=== PATIENT | female | born 1935 | race Caucasian/White ===

== ENCOUNTER 2017-03-01 17:00 | Inpatient (IN) | payer MEDICARE ==
[~2017-03-01] VITALS: Ht 158.8 cm; Wt 67.3 kg
[~2017-03-01 17:00] MED LIST: ACET1TAB PO; ALBU8.5H4 IH; CHOL200035 PO; CITA10TA14 PO; DIGO250T PO; FURO40TA PO; HYDR1TAB69 PO; LISI2.5T66 PO; MVI PO; PAPAYA ENZYME; PRI20 PO; PRO10 PO; SYN75 PO; VITAMIN B-12 PO; WARF4TAB2 PO; [UNRECOGNIZED DRUG - CODE] PO
--- NOTE | 2017-03-01 17:11 | ED.REPORT ---
HPI-Hip/Pelvis Prob/Inj Date of Service Mar 01, 2017 ED Provider: Dandre Ward DO The pt is a 81 y/o female with hx of A-fib, HTN, osteoarthritis, and R hip fx who presents to the ED via EMS complaining of left hip pain after a GLF prior to arrival. She c/o associated left shoulder pain. She denies abdominal pain, chest pain, headache, and head injury. The pt caught herself falling and fell on her left hip, resulting in her pain. The pain radiates down her entire left leg, with pain being most severe at the left hip. The pt is currently on warfarin. Nursing Notes Stated Complaint: LEFT HIP PAIN Chief Complaint: Left hip pain Nursing Notes Reviewed: Yes Allergies: Coded Allergies: Hydrocodone (Verified Allergy, Severe, 04/14/09) Metronidazole (Verified Allergy, Severe, whole body rash, 04/14/09) Penicillins (Verified Allergy, Mild, ITCHING BODY RASH/HIVES, 01/09/10) Beclomethasone (Verified Allergy, Unknown, 04/14/09) Nabumetone (Verified Allergy, Unknown, 04/14/09) Codeine (Verified Adverse Reaction, Mild, Nausea, 04/14/09) Uncoded Allergies: Iodinated contrast (Allergy, Severe, whole body rash, 12/30/08) Codeine (Adverse Reaction, Mild, Nausea, 03/05/05) General Time Seen by Provider: 17:20 Chief Complaint Hip injury left Hx Obtained From: Patient, EMS Arrived By: Ambulance Onset Occurred: Just prior to arrival Symptom Duration: Since onset Progression Since Onset: Constant Caused by: Accidental Location: Hip, L lateral aspect Quality: Painful Radiation: Radiation present Severity: Current: Severe Severity: Maximum: Severe Recent Healthcare: No recent doctor visit, No recent hospitalization Similar Sx Previous: No Past Medical History Past Medical History Osteoarthritis thrombophlebitis Asthma Right hip fx with hardware Reports: GERD, Hypertension Reports: Atrial fibrillation, Thyroid disease, Urinary tract infection Past Surgical History left knee joint replacement tumor ovary Reports: Cholecystectomy, Hysterectomy Reports: Gastric bypass Smoking History Former Smoker Social History Drug Use: Denies drug use Ambulatory Status Independent Review of Systems + left hip pain Denies head injury Musculoskeletal: Reports: Extremity pain (left shoulder, left leg), Joint pain (left knee) Neurologic: Denies: Headache Complete sys rev & neg: except as marked. Cardiovascular: Denies: Chest pain GI: Denies: Abdominal pain Physical Exam Initial Vital Signs Vital Signs (First) Date Time Temp Pulse Resp B/P Pulse Ox O2 Delivery O2 Flow Rate FiO2 03/01/17 17:31 37.0 88 18 138/69 100 Room Air Initial VS: Reviewed Head / Eyes: Atraumatic, Normocephalic Neck: Supple, Full range of motion Respiratory: Breath sounds normal, Clear to auscultation, No respiratory distress Cardiovascular: Regular rate & rhythm, Heart sounds normal, Intact distal pulses Abdomen / GI: Soft, Non-tender Upper Extremities: Vascular intact, Neuro intact Skin: Warm, Dry, No cyanosis Neurologic: Alert, Oriented, Nonfocal Psychiatric: Mood/affect normal, Behavior normal Lower Extremity / Pelvis / MS: Neurologic intact, Vascular intact Left hip is shortened and externally rotated. Tenderness and proximal left femur, knee, and tib-fib. General/Constitutional: Awake, Alert Upper Extremity / MS: Full range of motion, Neurologic intact, Vascular intact Interpretation & Diagnostics Lab Results Interpretation Result Diagram: 03/01/17 1736 03/01/17 1736 Test 03/01/17 17:29 03/01/17 17:36 Hold Urine Received (Received) White Blood Count 5.0th/mm3 (3.8-10.1) Red Blood Count 3.94mil/mm3 (3.90-5.20) Hemoglobin 12.6g/dL (12.0-15.6) Hematocrit 37.7% (35.0-46.0) Mean Corpuscular Volume 95.7fL (81-100) Mean Corpuscular Hemoglobin 32.0pg (27.0-35.0) Mean Corpuscular Hemoglobin Concent 33.4% (32.0-37.0) Red Cell Distribution Width 13.9% (12.3-15.4) Platelet Count 141bil/L (150-400) Neutrophils (%) (Auto) 71.1% (40-74) Lymphocytes (%) (Auto) 19.3% (14-46) Monocytes (%) (Auto) 7.4% (4-12) Eosinophils (%) (Auto) 1.8% (0-5) Basophils (%) (Auto) 0.2% (0-3) Prothrombin Time 22.2sec (8.1-12.5) Prothromb Time International Ratio 2.04ratio Sodium Level 138mEq/L (134-144) Potassium Level 3.4mEq/L (3.5-5.2) Chloride Level 96mEq/L (97-108) Carbon Dioxide Level 21mmol/L (18-29) Blood Urea Nitrogen 24mg/dL (8-27) Creatinine 0.86mg/dL (0.57-1.00) Estimat Glomerular Filtration Rate 91mL/min (>59) Glucose Level 121mg/dL (60-99) Calcium Level 9.6mg/dL (8.5-10.1) Total Bilirubin 0.7mg/dL (0.0-1.2) Aspartate Amino Transf (AST/SGOT) 24U/L (0-50) Alanine Aminotransferase (ALT/SGPT) 16U/L (0-32) Alkaline Phosphatase 95U/L (25-165) Total Protein 6.8g/dL (6.4-8.4) Albumin 3.9g/dL (3.4-5.0) Hold Gupta Top Tube Received (Received) X-Ray Chest Interpretation Chest Xray Interpretation: IMPRESSION: No acute cardiopulmonary disease process. Dictated by: Deysi Dailey MD, PhD on 03/01/2017 at 18:38 View: Portable, 1 view Interpretation / Wet Read by: Interpret - Radiologist X-Ray Interpretation Xray Interpretation: IMPRESSION: No distal left femur fracture. Dictated by: Deysi Dailey MD, PhD on 03/01/2017 at 18:39 Study Performed: TWO VIEWS X-Ray Ordered: Femur left Interpretation / Wet Read by: Interpret - Radiologist Xray Interpretation: IMPRESSION: Intertrochanteric left femur fracture. Dictated by: Deysi Dailey MD, PhD on 03/01/2017 at 18:36 Study Performed: COMPLETE, MINIMUM TWO VIEWS X-Ray Ordered: Hip left Interpretation / Wet Read by: Interpret - Radiologist Xray Interpretation: IMPRESSION: No fracture. No acute osseous lesion. If there are persistent symptoms or clinical suspicion for pathology, then repeat radiographs or advanced imaging (CT, MRI or bone scan) should be considered for further evaluation. Dictated by: Deysi Dailey MD, PhD on 03/01/2017 at 18:40 Study Performed: Two Views X-Ray Ordered: Tibia fibula left Interpretation / Wet Read by: Interpret - Radiologist Re-Eval/Medical Decision Med Decision/Clinical Course Left intertrochanteric femur fracture without head injury. We'll plan to admit for surgical fixation. Source of Hx: Old records Re-Evaluation/Progress : Time of Eval: 18:53 Re-Evaluation/Progress Note: Pt rechecked. Informed pt of diagnosis and plan for admission. The pt understands and agrees with plan. All questions addressed at this time. Consultation #1: Referral / Consult Name: Zhen Long MD Call Returned at: 18:48 Police Liaison Officer: Will see patient Note: NPO chel INIGUEZ Consultation #2: Referral / Consult Name: Colton Dial MD Call Returned at: 19:15 Police Liaison Officer: Accepts admit Counseled Regarding: Diagnosis, Lab results, Need for admission Discharge & Departure Impression: Primary Impression: Intertrochanteric fracture Encounter type: initial encounter Fracture type: closed Laterality: left Additional Impression: Left fibular fracture Encounter type: initial encounter Fibula location: proximal Fracture type: closed Fracture morphology: unspecified fracture morphology Qualified Code : S82.832A - Other fracture of upper and lower end of left fibula, initial encounter for closed fracture Disposition: ADMITTED TO HOSPITAL Discharge Condition All VS Reviewed: Yes Condition: Stable Referrals: Can Rollins MD (PCP) Scribe Attestation Portions of this note were transcribed by Tony Donato and Manasa Post. I , Dr. Ward personally performed the history, physical exam and medical decision-making; I reviewed and confirmed the accuracy of the information in the transcribed note. Signed by: Tony Donato and Jakob Mathis, 03/01/17. copies to: Can Rollins MDDandre Kumari Mar 01, 2017 17:11 Tony Donato Mar 01, 2017 17:19 Manasa Clarke Mar 01, 2017 18:20 : S82.832A - Other fracture of upper and lower end of left fibula, initial encounter for closed fracture Disposition: ADMITTED TO HOSPITAL Discharge Condition All VS Reviewed: Yes Condition: Stable Referrals: Can Rollins MD (PCP) Scribe Attestation Portions of this note were transcribed by Tony Donato and Manasa Post. I , Dr. Ward personally performed the history, physical exam and medical decision-making; I reviewed and confirmed the accuracy of the information in the transcribed note. Signed by: Tony Donato and Manasa Post, Jakob, 03/01/17. copies to: Can Rollins MD, Timothy S DO Mar 01, 2017 17:11 Tony Donato Mar 01, 2017 17:19 Manasa Clarke Mar 01, 2017 18:20
[2017-03-01 17:31] VITALS: BP 138/69; PULSE 88; RESP 18; O2SAT 100
[2017-03-01 17:50] LABS: BASOPHILS % (AUTO) 0.2 % (0-3); EOSINOPHILS % (AUTO) 1.8 % (0-5); MONOCYTES % (AUTO) 7.4 % (4-12); Mean Corpuscular Volume 95.7 fL (81-100); NEUTROPHILS % (AUTO) 71.1 % (40-74); Platelet Count 141 bil/L (150-400)
[2017-03-01 18:07] LABS: INR 2.04 ratio
--- NOTE | 2017-03-01 18:39 | DRSVH ---
PROCEDURE: X-RAY LEFT HIP COMPLETE, MINIMUM TWO VIEWS ([id number]) INDICATIONS: fall, hip pain TECHNIQUE: AP pelvis with lateral view(s) of the left hip(s). COMPARISON: None. FINDINGS: Bones: Mildly displaced intertrochanteric left femur fracture noted. Postoperative changes compatib le with ORIF of proximal right femur fracture noted. Displaced lesser trochanter fracture noted. Soft tissues: The visualized bowel gas pattern is normal. No suspicious soft tissue calcifications. IMPRESSION: Intertrochanteric left femur fracture. Dictated by: Deysi Dailey MD, PhD on 03/01/2017 at 18:36 Approved by: Deysi Dailey MD, PhD on 03/01/2017 at 18:38
--- NOTE | 2017-03-01 18:40 | DRSVH ---
PROCEDURE: X-RAY CHEST ONE VIEW, PORTABLE ([id number]) INDICATIONS: fall, hip pain TECHNIQUE: One view of the chest was acquired. COMPARISON: [facility], , CHEST 1VW, 01/09/2010, 9:09. FINDINGS: Surgical changes and devices: Status post CABG procedure and cardiac valve replacement. Lungs and pleura: No pleural effusions or pneumothorax. Lungs are clear. Mediastinum: Mediastinal contours appear normal. Heart size is normal. Bones and chest wall: No suspicious bony lesions. Overlying soft tissues appear unremarkable. IMPRESSION: No acute cardiopulmonary disease process. Dictated by: Deysi Dailey MD, PhD on 03/01/2017 at 18:38 Approved by: Deysi Dailey MD, PhD on 03/01/2017 at 18:39
--- NOTE | 2017-03-01 18:41 | DRSVH ---
PROCEDURE: X-RAY LEFT FEMUR, TWO VIEWS ([id number]) INDICATIONS: fall, hip pain TECHNIQUE: 2 views of the femur were acquired. COMPARISON: None. FINDINGS: Bones: No distal left femur fracture noted. Patient status post left knee arthroplasty. Soft tissues: Atherosclerotic calcifications noted. IMPRESSION: No distal left femur fracture. Dictated by: Deysi Dailey MD, PhD on 03/01/2017 at 18:39 Approved by: Deysi Dailey MD, PhD on 03/01/2017 at 18:40
--- NOTE | 2017-03-01 18:43 | DRSVH ---
PROCEDURE: X-RAY LEFT TIBIA/FIBULA, TWO VIEWS ([id number]) INDICATIONS: fall, hip pain TECHNIQUE: 2 views of the tibia and fibula were acquired. COMPARISON: None. FINDINGS: Bones: No fractures or dislocations. No suspicious bony lesions. Status post left knee arthroplasty . Ankle osteoarthritic degenerative changes noted. Calcaneal bone spur is noted. Soft tissues: Atherosclerotic calcifications noted. IMPRESSION: No fracture. No acute osseous lesion. If there are persistent symptoms or clinical suspi cion for pathology, then repeat radiographs or advanced imaging (CT, MRI or bone scan) should be cons idered for further evaluation. Dictated by: Deysi Dailey MD, PhD on 03/01/2017 at 18:40 Approved by: Deysi Dailey MD, PhD on 03/01/2017 at 18:41
[2017-03-01] MEDS ORDERED: FURO40TA4 PO (19:23)
[2017-03-01] MEDS ORDERED: WARF4TAB6 PO (19:23)
[2017-03-01] MEDS ORDERED: FLUO10CA20 PO (19:23)
[2017-03-01] MEDS ORDERED: PRAV40TA PO (19:23)
[2017-03-01] MEDS ORDERED: DIGO250T12 PO (19:23)
[2017-03-01] MEDS ORDERED: DICL100G30 TOPICAL (19:23)
[2017-03-01] MEDS ORDERED: ACET-171 PO (19:23)
[2017-03-01] MEDS ORDERED: LEVO50TA6 PO (19:23)
[2017-03-01] MEDS ORDERED: OMEP20CA11 PO (19:23)
--- NOTE | 2017-03-01 19:23 | PCM.CONORT ---
Subjective Date of Surgery: Mar 02, 2017 Surgeon Admitting Provider: Attending Provider: Primary Care Physician:Other,Physician Other Provider:Tristan Maurice Reason for Consultation: left hip pain Allergy Allergies: Coded Allergies: hydrocodone (Verified Allergy, Severe, 04/14/09) metronidazole (Verified Allergy, Severe, whole body rash, 04/14/09) Penicillins (Verified Allergy, Mild, ITCHING BODY RASH/HIVES, 01/09/10) beclomethasone (Verified Allergy, Unknown, 04/14/09) nabumetone (Verified Allergy, Unknown, 04/14/09) codeine (Verified Adverse Reaction, Mild, Nausea, 04/14/09) Uncoded Allergies: Iodinated contrast (Allergy, Severe, whole body rash, 12/30/08) Codeine (Adverse Reaction, Mild, Nausea, 03/05/05) Medications Acetaminophen (Acetaminophen) 500 Mg Tablet 1,000 MG PO HS PRN PRN For Pain ( Reported) Last Taken: Unknown Dose on 02/28/17 2100 Diclofenac Sodium (Diclofenac Sodium) 1 % Gel..gram. 1 APPLIC TOPICAL QID PRN PRN RASH (Reported) Last Taken: Unknown Dose on Unknown Date & Time Digoxin (Digox) 250 Mcg Tablet 250 MCG PO DAILY (Reported) Last Taken: Unknown Dose on 03/01/17 08 Fluoxetine (Fluoxetine) 10 Mg Capsule 10 MG PO DAILY (Reported) Last Taken: Unknown Dose on 03/01/17 08 Furosemide (Furosemide) 40 Mg Tablet 40 MG PO DAILY (Reported) Last Taken: Unknown Dose on 03/01/17 08 Levothyroxine (Levothyroxine) 50 Mcg Tablet 50 MCG PO DAILY (Reported) Last Taken: Unknown Dose on 03/01/17 08 Omeprazole (Omeprazole) 20 Mg Capsule.dr 20 MG PO DAILY (Reported) Last Taken: Unknown Dose on 03/01/17 08 Pravastatin (Pravastatin) 40 Mg Tablet 40 MG PO DAILY (Reported) Last Taken: Unknown Dose on 03/01/17799 Warfarin Sodium (Warfarin Sodium) 4 Mg Tablet 4 MG PO DAILY (Reported) Last Taken: Unknown Dose on 03/01/17 0800 Discontinued Medications ([Vitamin B-12]) 1,000 MG PO DAILY (Reported) ([Papaya Enzyme]) PRN (Reported) PRN NAUSEA Acetaminophen/Dp-Hydramine (Excedrin Pm 500-38 Mg Gelcap) 1 Each Tablet EACH PO PRN (Reported) PM prn Albuterol-Expunged Drug, Do Not Renew! (Albuterol-Expunged Drug, Do Not Renew!) 8.5 Gm Hfa.aer.ad 2 PUFFS IH Q4-6H PRN PRN (Reported) CHOLECALCIFEROL-Expunged Drug, Do Not Renew! (VITAMIN D3-Expunged Drug, Do Not Renew!) 2,000 Unit Capsule 2,000 UNIT PO DAILY (Reported) Calcium Carbonate (Calcium Carbonate) 1,000 Mg Tab.chew 1,000 MG PO DAILY ( Reported) Citalopram-Expunged Drug, Do Not Renew! (Citalopram-Expunged Drug, Do Not Renew! ) 10 Mg Tablet 10 MG PO DAILY (Reported) Digoxin-Expunged Drug, Do Not Renew! (Digoxin-Expunged Drug, Do Not Renew!) 250 Mcg Tablet 250 TAB PO DAILY (Reported) FLUoxetine-Expunged Drug, Do Not Renew! (FLUoxetine-Expunged Drug, Do Not Renew! ) 10 Mg Capsule 10 MG PO DAILY (Reported) Furosemide-Expunged Drug, Do Not Renew! (Lasix-Expunged Drug, Do Not Renew!) 40 Mg Tablet 40 MG PO DAILY (Reported) Hydrocod/APAP-Expunged, Do Not Renew! (VICODIN-Expunged Drug, Do Not Renew) 1 Tab Tab 1-2 TAB PO every four hours PRN PRN (Reported) Levothyroxine-Expunged Drug, Do Not Renew! (Synthroid-Expunged Drug, Do Not Renew!) 75 Mcg Tablet 75 MCG PO DAILY (Reported) Lisinopril-Expunged Drug, Do Not Renew! (Lisinopril-Expunged Drug, Do Not Renew! ) 2.5 Mg Tablet 2.5 MG PO DAILY (Reported) Omeprazole-Expunged Drug, Do Not Renew! (Omeprazole-Expunged Drug, Do Not Renew! ) 20 Mg Capcr 20 MG PO DAILY (Reported) Therapeutic Multivit/Minerals-Expunged Drug, (Therapeutic Multivit/Minerals- Expunged Drug,) 1 Ea Tab 1 TAB PO DAILY (Reported) Warfarin Sodium Inactive Drug Do Not Use (Coumadin Inactive Drug Do Not Use) 4 Mg Tablet 4 MG PO DAILY (Reported) History History of ENT Problems?: Yes HEENT History: Positive for:: Cataracts (removed) Denies:: Abnormal Airway Difficult Intubation Dysphagia Glaucoma Hearing Problem Sinus Problem TMJ Denture Type: None Teeth Condition: Within Normal Limits Hx of Heart Problems?: Yes Cardiovascular History: Positive for:: Atrial Fibrillation Edema Heart Murmur Irregular Heartbeat (OCCASSIONALLY) Thrombophlebitis (blood clot to the leg) Denies:: Cardiac Surgery Chest Pain Congestive Heart Failure Hypertension (Afib) Pacemaker Hx of Respiratory Problem?: Yes Respiratory History: Positive for:: Asthma (uses inhalers as needed) Dyspnea (occasionally) Pneumonia (2010) Denies:: COPD Chest Surgery Emphysema Hemoptysis Tuberculosis Hx Neurologic Problems?: Yes Neurological History: Positive for:: Dizziness (chronic vertigo) Denies:: Alzheimer's Disease CVA Dementia Headaches Parkinson's Disease Seizures Hx of GI Problems?: Yes Hx of Problems?: No Genitourinary History: Positive for:: Urinary Tract Infection (remote history) Denies:: HX of Hemodialysis Kidney Stones HX of Peritoneal Dialysis: No Female Hx: Denies:: Currently Endometriosis Pelvic Inflammatory Problems with Breasts? Skin History: Denies:: History Skin Disorders? Pressure Ulcers Hx Musculoskeletal Problems?: Yes Musculoskeletal History: Positive for:: Joint Replacement (left knee) Musculoskeletal Trauma (Rt hip fx with hardware) Denies:: Back Injury Other History/Comment Mahi cMkinney is an 81 y/o female with hx pertinent but not limited to A-fib, HTN, osteoarthritis, presents with left hip after fall from standing. She reports tripping and tried to catch herself prior to fall. She reports a hx of right femur fracture 7 years ago, left TKA 8 years ago in the past. The patient states that their pain is a sharp in nature and mild/moderate in severity localized in the hip and groin without radiation. Moreover, the pain is exacerbated by activities, especially with any movement. Rest seems to improve the symptoms. Patient reports associated symptoms some clicking, no stiffness, some swelling, with weakness. Previous treatment has included no previous surgery left hip. There is no reports numbness, tingling, or weakness to the affected distal lower extremity. There is no known history of hip problems as a child/adolescent such as SCFE, Perthes, dysplasia, OI, or ligamentous laxity. The patient denies any fever, chills, nausea, vomiting, chest pain, shortness of breath, or calf tenderness. 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 Hx of Psycho/Social Problems?: Yes Psycho Social History: Positive for:: Hx Depression Denies:: Anxiety Bipolar Disorder Suicide Attempt Hx Surgeries?: Yes (left knee, gastric bypass, cholecystectomy, tumor ovary, hyster) Hx Any Other Health Problems?: Yes Other History: Positive for:: Endocrine Disease Hospitalization Thyroid Disease Denies:: Cancer History Blood Transfusions: Positive for:: Accept Blood Products? Blood Transfusions Denies:: Blood Transfuse Reaction Hx Diabetes: No (after weight loss, diet controlled) Hx Alcohol Use: YesHx Substance Use: No Smoking Status: Former Smoker Have You Smoked inLast 12 mo: No (quit 1974) Objective Exam Vital Signs & I/O Vital Sign- Last 8 Hours Date Time Temp Pulse Resp B/P Pulse Ox O2 Delivery O2 Flow Rate FiO2 03/01/17 17:31 37.0 88 18 138/69 100 Room Air Lab & Micro Results Laboratory Tests Test 03/01/17 17:29 03/01/17 17:36 Hold Urine Received (Received) White Blood Count 5.0th/mm3 (3.8-10.1) Red Blood Count 3.94mil/mm3 (3.90-5.20) Hemoglobin 12.6g/dL (12.0-15.6) Hematocrit 37.7% (35.0-46.0) Mean Corpuscular Volume 95.7fL (81-100) Mean Corpuscular Hemoglobin 32.0pg (27.0-35.0) Mean Corpuscular Hemoglobin Concent 33.4% (32.0-37.0) Red Cell Distribution Width 13.9% (12.3-15.4) Platelet Count 141bil/L (150-400) Neutrophils (%) (Auto) 71.1% (40-74) Lymphocytes (%) (Auto) 19.3% (14-46) Monocytes (%) (Auto) 7.4% (4-12) Eosinophils (%) (Auto) 1.8% (0-5) Basophils (%) (Auto) 0.2% (0-3) Prothrombin Time 22.2sec (8.1-12.5) Prothromb Time International Ratio 2.04ratio Sodium Level 138mEq/L (134-144) Potassium Level 3.4mEq/L (3.5-5.2) Chloride Level 96mEq/L (97-108) Carbon Dioxide Level 21mmol/L (18-29) Blood Urea Nitrogen 24mg/dL (8-27) Creatinine 0.86mg/dL (0.57-1.00) Estimat Glomerular Filtration Rate 91mL/min (>59) Glucose Level 121mg/dL (60-99) Calcium Level 9.6mg/dL (8.5-10.1) Total Bilirubin 0.7mg/dL (0.0-1.2) Aspartate Amino Transf (AST/SGOT) 24U/L (0-50) Alanine Aminotransferase (ALT/SGPT) 16U/L (0-32) Alkaline Phosphatase 95U/L (25-165) Total Protein 6.8g/dL (6.4-8.4) Albumin 3.9g/dL (3.4-5.0) Hold Gupta Top Tube Received (Received) Result Diagram: 03/01/17173503/01/171735 Review of Systems: Constitutional: Negative, except as otherwise mentioned in the history above. Ophthalmologic: Negative, except as otherwise mentioned in the history above. Cardiovascular: Negative, except as otherwise mentioned in the history above. Respiratory: Negative, except as otherwise mentioned in the history above. Gastrointestinal: Negative, except as otherwise mentioned in the history above. Genitourinary: Negative, except as otherwise mentioned in the history above. Musculoskeletal: Negative, except as otherwise mentioned in the history above. Neurological: Negative, except as otherwise mentioned in the history above. Psychiatric: Negative, except as otherwise mentioned in the history above. Hematologic/Lymphatic: Negative, except as otherwise mentioned in the history above. Allergic/Immunologic: Negative, except as otherwise mentioned in the history above. H&P Surgical Exam Exam Musculoskeletal: CONST: WD,WN, NAD, A+OX3 OCULAR: EOMI, no conjunctivitis/icterus ENT: no deformities, scars or lesions CARDIAC: Pulse is regular. No cyanosis,clubbing,edema RESP: regular,unlabored MSK: normal light touch SPN/DPN/TN distributions. 5/5 DF/PF/Inv/Ev, 2+ DP Left HIP - scars.+swelling, - erythema - atrophy or asymmetry. TTP left hip Shortened, external rotated ROM logroll-painful Strength Deferred Signs Deferred 2 view xray of the left hip demonstrates displaced intertrochanteric fracture 2 view xray of the left hip and tib/fib demonstrates degenerative changes, hx of LTKA noted with no signs of acute loosening or signs of infection H&P Preop Plan Impression left displaced intertrochanteric hip fractures Problems: Risks & Benefits * We have reviewed the risks and benefits as well as the alternatives to surgery. All questions were answered to the patient's satisfaction and a counseling note to that effect. The patient has provided informed consent. * I have counseled the patient regarding the deleterious effects that smoking during the perioperative period can have upon wound healing, infection rates, and the overall rate of complications. Plan NWB LLE recommend left hip CRIMN tomorrow NPO after midnight medical optimization for surgery tomorrow with anticoagulation reversal continue medical management per primary pain control DVT prophylaxis with SCD/JOSEPH's resume chemical anticoagulation after surgery recommend DEXA scan and f/u with bone health/endocrinology as outpt recommend PT/OT for ambulation assistance/ADL's please call with questions Zhen Long MD Mar 01, 2017 19:23
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
[2017-03-01] MEDS ORDERED: Polyethylene Glycol (PEG) 17 Gm Powder PO PRN (19:40)
[2017-03-01] MEDS ORDERED: Ondansetron 2 mg/mL 2 mL Inj IVPUSH PRN (19:40)
[2017-03-01] MEDS ORDERED: Alum-Mag Hydrox-Simeth 30 mL Suspension PO PRN (19:40)
[2017-03-01] MEDS: fentaNYL-PF 50 mCg/mL 2 mL Inj IVPUSH PRN ×2 (19:44→21:18)
[2017-03-01] MEDS: 0.9% Sodium Chloride 1,000 ML IV SCH ×2 (19:44→20:21)
[2017-03-01] MEDS: Ondansetron 2 mg/mL 2 mL Inj IVPUSH PRN ×2 (19:44→21:18)
[2017-03-01 20:19] LABS: APPEARANCE,URINE CLEAR (CLEAR,HAZY); COLOR,URINE YELLOW (YELLOW); OCCULT BLOOD,URINE SMALL (NEGATIVE); UROBILINOGEN,URINE NORMAL (NORMAL)
[2017-03-01 21:18] VITALS: BP 141/52; PULSE 70; RESP 18; O2SAT 97
[2017-03-01 21:19] VITALS: BP 141/52; PULSE 70; RESP 18; O2SAT 97
--- NOTE | 2017-03-01 21:45 | NUR ---
Admit Report received from ED. Admit done by admit nurse. Patient transported via [facility]. Transferred to bed via slide board. Patient admitted with fractured left hip. Patient is hard of hearing and does not have her hearing aids here. SCD placed on unaffected leg. Lost IV access in left hand. New IV placed in left arm. Upon transfer, no pain meds were ordered. Hospitalist paged. IV pain meds ordered. Patient is NPO. Bed down, rails up, call light in reach. Care continues.
[2017-03-01 21:50] VITALS: BP 147/72; PULSE 77; RESP 24; O2SAT 100
[2017-03-01] MEDS: HYDROmorphone 0.5 mg/0.5 mL iSecure Syringe IVPUSH PRN (23:31)
[2017-03-02] VITALS (19 sets, daily range): BP systolic 96–146; BP diastolic 40–64; PULSE 62–92; RESP 14–19; O2SAT 95–100
[2017-03-02 04:28] LABS: INR 2.05 ratio
[2017-03-02] MEDS: 0.9% Sodium Chloride 250 ML IV SCH (05:20)
[2017-03-02] MEDS: HYDROmorphone 0.5 mg/0.5 mL iSecure Syringe IVPUSH PRN ×2 (06:51→16:21)
[2017-03-02] MEDS: Pantoprazole 20 mg ER24 Tablet PO SCH (08:09)
[2017-03-02] MEDS: 0.9% Sodium Chloride 1,000 ML IV SCH ×3 (08:09→16:29)
--- NOTE | 2017-03-02 08:12 | PCM.PNMED ---
Subjective Date of Service Mar 02, 2017 Subjective Denies any new issues/complaints over night. Exam Vital Signs Vital Sign - Last Date Time Temp Pulse Resp B/P Pulse Ox O2 Delivery O2 Flow Rate FiO2 03/02/17 06:57 36.8 64 18 120/64 95 03/01/17 21:19 Room Air Intake and Output 03/01/17 03/01/17 03/02/17 Cumulative From/Thru 15:00 23:00 07:00 03/01/17 17:31 - 03/02/17 06:46 Intake Total 1000 ml 861 ml 1861 ml Balance 1000 ml 861 ml 1861 ml IV Total 1000 ml 861 ml 1861 ml General: Alert, Oriented X3, Cooperative, No Acute Distress Head: Normal Eyes: Scleral Anicteric Nose: Mucous Membr Moist/[place] Mouth: Mucous Membr Moist/[place] Neck: Supple Chest & Lungs: Chest Wall Normal, Clear to auscultation & percussion Cardiovascular: Regular Rate/Rhythm Pulses: NL carotid, radial, femoral, DP, PT Abdomen: Non-tender, Non-distended, Normoactive bowel tones, Soft Extremities: No cyanosis/clubbing/edma bilat Neurological: Grossly Neurologically Intact, Normal Speech Additional Information: Psych: calm, appropriate IVs and Medications Medications Reviewed: Medications were reviewed in detail Lab and Diagnostics Result Diagram: 03/01/17173503/01/171735 X-Rays, CTs and MRIs PROCEDURE: X-RAY LEFT TIBIA/FIBULA, TWO VIEWS ([id number]) IMPRESSION: No fracture. No acute osseous lesion. If there are persistent symptoms or clinical suspicion for pathology, then repeat radiographs or advanced imaging (CT, MRI or bone scan) should be considered for further evaluation. PROCEDURE: X-RAY LEFT HIP COMPLETE, MINIMUM TWO VIEWS ([id number]) IMPRESSION: Intertrochanteric left femur fracture PROCEDURE: X-RAY LEFT FEMUR, TWO VIEWS ([id number]) IMPRESSION: No distal left femur fracture. PROCEDURE: X-RAY CHEST ONE VIEW, PORTABLE ([id number]) IMPRESSION: No acute cardiopulmonary disease process. Assessment & Plan 81-year-old female that presented to the emergency department post ground-level fall with a left femur fracture and a history of osteoporosis, hypertension, A. fib on Coumadin # Acute left intertrochanteric femur fracture, present upon admission and ongoing - Patient presented with a history of osteoporosis and ground level fall resulting in left femur fracture demonstrated on x-ray - Tentative plan for surgery on 03/02/17 pending reversal of INR # Chronic atrial fibrillation on Coumadin, present on admission. - Rate controlled. - Continue with home dose Dig. - Continue to hold Coumadin for now - INR still 2.05 despite holding Coumadin last night. - FFP already ordered by the night team. Followup repeat INR after FFP # Coronary artery disease with triple bypass, present upon admission. Presumed stable. - Continue outpatient statin medication and blood pressure management - Most current echo results available at this time are from 2008 indicating tricuspid aortic valve stenosis, severe with mitral annular calcification and moderate mitral insufficiency, normal ejection fraction. - Patient should be scheduled for an echo if one has not been done within the last year # Chronic hypothyroidism, present on admission. Presumed stable. - Continue outpatient medication # History of hypertension, present upon admission - Currently under control. - Continue outpatient medication # Acute hypokalemia, present on admission. - Replete and followup Dispo: 3-4 days VTE Mechanical Devices: Intermittant Pneumatic CD Resuscitation Status: DNR/DNI:Do Not Resuscitate/Intubate Norberto Adam Mar 02, 2017 08:12
[2017-03-02] MEDS ORDERED: KCl 40 mEq/D5W 500 mL 40 MEQ in IV Premix 500 EACH IV ONE (08:15)
--- NOTE | 2017-03-02 08:23 | PCM.ADCARE ---
Advance Care Planning Note Purpose of Encounter: Goals of care regarding her current hospitalization and hip fracture Parties in Attendance: Patient Decisional Capacity: Decisional Subjective: Denies any new issues/complaints. says pain under control right now Objective: Awake, alert, Ox3 Lungs: CTA bilat CV: RRR Abd: soft, NT, nd, +bs Goals of Care Determinations: Her goal is to fix her hip fracture and hopefully return back to her independent living. She says she is not interested in any heroic measures and does not wish to be resuscitated or intubated in case of on emergency. Plan: Will try to optimize her medical condition, including reversing the INR, prior to hip surgery. Will then proceed with PT and rehab with goal of hopefully returning back to her living arrangement prior to this hospitalization. CODE STATUS: DNR/DNI Time Spent Adv.Care Plannin min Norberto Adam Mar 02, 2017 08:23
[2017-03-02] MEDS ORDERED: EPHEDrine/NS 5 mg/mL 5 mL Syringe ONE (08:30)
[2017-03-02] MEDS ORDERED: Dexamethasone 4 mg/mL Inj ONE (08:30)
[2017-03-02] MEDS ORDERED: Rocuronium 10 mg/mL 5 mL Inj ONE (08:30)
[2017-03-02] MEDS ORDERED: Propofol 10,000 mCg/mL 20 mL Inj ONE (08:30)
[2017-03-02] MEDS ORDERED: Glycopyrrolate 0.2 MG/ML 1mL Inj ONE (08:30)
[2017-03-02] MEDS ORDERED: Ketamine 10 mg/mL 20 mL Inj ONE (08:30)
[2017-03-02] MEDS ORDERED: fentaNYL-PF 50 mCg/mL 2 mL Inj ONE (08:30)
[2017-03-02] MEDS ORDERED: Esmolol 10,000 mCg/mL 10 mL Inj ONE (08:30)
[2017-03-02] MEDS ORDERED: KCl 40 mEq/500 mL D5W (Peripheral Line) IV ONE ×2 (09:00)
--- NOTE | 2017-03-02 13:04 | NUR ---
pt is off the floor to OR Addendum: 03/02/17 at 1304 by [employer] CNA Amended: Links added.
[2017-03-02] MEDS ORDERED: Polyethylene Glycol (PEG) 17 Gm Powder PO PRN (13:10)
[2017-03-02] MEDS ORDERED: Sodium Biphos-Phos 133 mL Enema RECTAL PRN (13:10)
[2017-03-02] MEDS ORDERED: Ondansetron 2 mg/mL 2 mL Inj IVPUSH PRN ×2 (13:10→15:30)
[2017-03-02] MEDS ORDERED: Ketorolac 15 mg/mL Inj IVPUSH PRN (13:10)
[2017-03-02] MEDS ORDERED: Magnesium Hydroxide 10 mL Oral Concentration PO PRN (13:10)
[2017-03-02] MEDS ORDERED: Lactated Ringer's 1,000 ML IV ONE ×2 (13:24→14:37)
--- NOTE | 2017-03-02 13:27 | PCM.ORTHOP ---
Orthopedic Operative Report Date of Service: Mar 02, 2017 Pre Operative Diagnosis Left hip displaced intertrochanteric fracture Post Operative Diagnosis Same Procedure Left hip closed reduction cephalomedullary fixation Surgeon Surgeon:Zhen Long Assistants: Tanisha Colbert DO Indication for Procedure left hip fracture Findings left displaced intertrochanteric fx Details of Procedure Implant: [employer]ynthes 12 mm x 380 mm TFN 125 deg; 56mm distal interlock Indications: This is Mahi Mckinney is an 81 year old status-post a left intertrochanteric hip fracture with subtrochanteric extension. The risks versus benefits of open reduction and internal fixation were discussed with the patient in detail. The patient voiced understanding of the risks and agreed to proceed. The risks discussed were pain, bleeding, infection, damage to neurovascular structures, failure of procedure, need for further procedures, loss of limb function, loss of limb, heart attack, stroke, and . Verbal and written consent were obtained. Description of Operation: The patient was brought to the operating room. Patient name and surgical site were confirmed. Preoperative antibiotics were given. General anesthesia was administered. The patient was placed supine on the fracture table in the standard fashion. All bony prominences were well padded. Traction was applied to the operative leg and the fracture was closed reduced under C-arm guidance. The leg and hip were then prepped and draped in the usual sterile fashion. A small longitudinal incision was made proximal to the greater trochanter. Subcutaneous dissection was bluntly performed down to the tip of the greater trochanter. A 3.2 mm guide pin was then placed through the tip of the greater trochanter and into the femoral canal under fluoroscopic guidance. This was checked in both AP and lateral views. This pin was then over-reamed with a 17 mm reamer. The ball tipped guide wire was placed into the medullary canal and advanced into the center of the distal metaphysis. The guide wire was then over-reamed in 0.5 mm increments until bony chatter was achieved at the isthmus. A tire gauge was used to determine the length of the nail. The nail implant was loaded onto the insertion jig and then gently malleted into position over the guide wire. The fracture was well reduced as confirmed with C-arm in AP and lateral views. The guide was removed. The guide pin for the hip screw was inserted to a point within 25 mm tip-to-apex distance on AP and lateral views. The size was measured. A hip screw size was selected along with a [default value] mm compression screw. The lateral cortex was drilled for the compression screw. The guide pin was then overdrilled and the hip screw was inserted with clear compression at the fracture once the compression screw inserted and engaged. The traction was removed and orthogonal views with fluoroscopy determined reduction of our fracture with appropriate placement of hip screw centered with a tip-to-apex distance less than 25 mm. The distal interlocking screw was then inserted in the standard fashion using the perfect [place] technique under C-arm guidance. All wounds were thoroughly irrigated by bulb irrigation. Hemostasis was obtained with electrocautery. The fascia was closed with 0 Vicryl suture. The subcutaneous space was closed with interrupted 2-0 Vicryl suture. The skin was closed with sanjuana. Hard copy radiographs confirmed adequate reduction and placement of hardware. The patient was extubated without difficulty and transferred to the PACU in stable condition. I was present and scrubbed for the entire procedure. Description of Findings: left displaced intertrochanteric fracture Specimens Obtained: none You may weight bear as tolerated. Keep your wound clean, dry and intact. We will change your dressing in 2 days and continue daily dressing changes. PT/OT will be ordered. Return to clinic in 2 weeks with me with 2 view x-rays and staple/suture removal with Steri-Strips application. You may get your wound wet at that time. We will progress weightbearing to full without restrictions once radiographic healing noted at 6-10 weeks. Please keep the affected extremity elevated when possible. You may use ice and/or heat as needed for comfort. All questions and concerns were addressed. Please feel free to call with any further questions, comments, and/or concerns. You will take your blood thinners starting tomorrow in addition to SCD/JOSEPH's. Grafts, Implants: Implants-See Implant Record Complications There were no periprocedural complications identified. Condition Stable Anesthetic Administered: GA Output, Estimated Blood Loss: 50 Blood Admin during surgery: No Surgical Cast or Splint: Other Surgical Specimen Removed: No Specimen sent to Pathology: No copies to: Zhen Long MD, Christopher L MD Mar 02, 2017 13:27
[2017-03-02] MEDS ORDERED: Clindamycin Inj 600 MG in IV Premix 1 EACH IV ONE (13:44)
[2017-03-02] MEDS ORDERED: Clindamycin 600 mg/50 mL D5W Premix IV ONE (13:49)
[2017-03-02] MEDS ORDERED: Ropivacaine-PF 0.5% 30 mL Inj INFILTRATE ONE (14:06)
[2017-03-02] MEDS ORDERED: Lactated Ringer's 1,000 ML IV SCH (15:26)
[2017-03-02] MEDS ORDERED: Lactated Ringer's 500 ML IV PRN (15:26)
[2017-03-02] MEDS ORDERED: Phenylephrine 10,000 mCg/mL Inj IVPUSH PRN (15:30)
[2017-03-02] MEDS ORDERED: HYDROmorphone 1 mg/mL Inj IVPUSH PRN (15:30)
[2017-03-02] MEDS ORDERED: EPHEDrine Sulfate 50 mg/mL Inj IVPUSH PRN (15:30)
[2017-03-02] MEDS ORDERED: fentaNYL-PF 50 mCg/mL 2 mL Inj IVPUSH PRN (15:30)
--- NOTE | 2017-03-02 15:35 | PCM.HPANE ---
Patient Data Surgeon Admitting Provider:Colton Dial MD Attending Provider:Norberto Adam Primary Care Physician:Other,Physician Other Provider:Tristan Maurice Reason for Visit Hip Fx Ht/WT & BMI Height (Feet): 5 Height (Inches): 2.50 Weight (Kilograms): 67.300 Body Mass Index 26.62 Allergies Coded Allergies: hydrocodone (Verified Allergy, Severe, 04/14/09) metronidazole (Verified Allergy, Severe, whole body rash, 04/14/09) Penicillins (Verified Allergy, Mild, ITCHING BODY RASH/HIVES, 01/09/10) beclomethasone (Verified Allergy, Unknown, 04/14/09) nabumetone (Verified Allergy, Unknown, 04/14/09) codeine (Verified Adverse Reaction, Mild, Nausea, 04/14/09) Uncoded Allergies: Iodinated contrast (Allergy, Severe, whole body rash, 12/30/08) Codeine (Adverse Reaction, Mild, Nausea, 03/05/05) Past Anesthesia History Anesthesia History: Denies:: Abnormal Airway, Anesthesia Reactions, Difficult Intubation, Fam Anesthesia Reaction, Fam Malignant Hypertherm, Malignant Hyperthermia Diabetes History Hx Diabetes?: No (after weight loss, diet controlled) Type of Diabetes: Diet Controlled Glycemic Control: Diet Controlled MRSA MRSA: No Medications Reported Medications Acetaminophen 500 Mg Tablet1,000 Mg PO HS PRN For Pain 03/01/17 Diclofenac Sodium 1 % Gel..gram.1 Applic TOPICAL QID PRN RASH 03/01/17 Levothyroxine 50 Mcg Dusuis11 Mcg PO DAILY 03/01/17 Fluoxetine 10 Mg Twqrvct81 Mg PO DAILY 03/01/17 Pravastatin 40 Mg Gzjqfl41 Mg PO DAILY 03/01/17 Omeprazole 20 Mg Capsule.dr20 Mg PO DAILY 03/01/17 Furosemide 40 Mg Vbpvzw56 Mg PO DAILY 03/01/17 Digoxin (Digox)250 Mcg Kbvqum100 Mcg PO DAILY 03/01/17 Warfarin Sodium 4 Mg Tablet4 Mg PO DAILY 03/01/17 Discontinued Reported Medications Hydrocod/APAP-Expunged, Do Not Renew! (VICODIN-Expunged Drug, Do Not Renew)1 Tab Tab1-2 Tab PO every four hours PRN 11/16/11 Acetaminophen/Dp-Hydramine (Excedrin Pm 500-38 Mg Gelcap)1 Each Tablet Each PO PRN PM prn 11/10/11 [Papaya Enzyme] No Conflict Check Prn PRN NAUSEA 11/10/11 Lisinopril-Expunged Drug, Do Not Renew! 2.5 Mg Tablet2.5 Mg PO DAILY 11/10/11 FLUoxetine-Expunged Drug, Do Not Renew! 10 Mg Pjngzxn33 Mg PO DAILY 11/10/11 Warfarin Sodium Inactive Drug Do Not Use (Coumadin Inactive Drug Do Not Use)4 Mg Tablet4 Mg PO DAILY 11/10/11 Digoxin-Expunged Drug, Do Not Renew! 250 Mcg Nwgzit052 Tab PO DAILY 11/10/11 Levothyroxine-Expunged Drug, Do Not Renew! (Synthroid-Expunged Drug, Do Not Renew!)75 Mcg Wzxkfi81 Mcg PO DAILY 11/10/11 CHOLECALCIFEROL-Expunged Drug, Do Not Renew! (VITAMIN D3-Expunged Drug, Do Not Renew!)2,000 Unit Capsule2,000 Unit PO DAILY 11/10/11 Calcium Carbonate 1,000 Mg Tab.chew1,000 Mg PO DAILY 11/10/11 Citalopram-Expunged Drug, Do Not Renew! 10 Mg Urkcha99 Mg PO DAILY 11/10/11 Furosemide-Expunged Drug, Do Not Renew! (Lasix-Expunged Drug, Do Not Renew!)40 Mg Ismysh86 Mg PO DAILY Ref 0 01/01/09 Albuterol-Expunged Drug, Do Not Renew! 8.5 Gm Hfa.aer.ad2 Puffs IH Q4-6H PRN Ref 0 12/10/08 Omeprazole-Expunged Drug, Do Not Renew! 20 Mg Capcr20 Mg PO DAILY Ref 0 12/10/08 [Vitamin B-12] No Conflict Check1,000 Mg PO DAILY Ref 0 11/19/08 Therapeutic Multivit/Minerals-Expunged Drug, 1 Ea Tab1 Tab PO DAILY Ref 0 11/19/08 History History of ENT Problems?: Yes HEENT History: Positive for:: Cataracts Denies:: Abnormal Airway Difficult Intubation Dysphagia Glaucoma Hearing Problem Sinus Problem TMJ Denture Type: Full- Upper Teeth Condition: Within Normal Limits Other HEENT Pertinent History: Macular degeneration Hx of Heart Problems?: Yes Cardiovascular History: Positive for:: Atrial Fibrillation Cardiac Surgery (Triple Bipass, Artificial valve) Irregular Heartbeat (AFib) Denies:: Chest Pain Congestive Heart Failure Edema Heart Murmur Hypertension Pacemaker Thrombophlebitis Other History/Comments CAD and severe s/p CABG and AVR 2012 with nml bioprostehetic valve and Nml RV /LV fn last TTE 02/2013 Hx of Respiratory Problem?: Yes Respiratory History: Positive for:: Pneumonia (As a child) Denies:: Asthma COPD Chest Surgery Dyspnea Emphysema Hemoptysis Tuberculosis Hx Neurologic Problems?: Yes Neurological History: Positive for:: Dizziness (chronic vertigo) Denies:: Alzheimer's Disease CVA Dementia Headaches Parkinson's Disease Seizures Hx of GI Problems?: Yes Gastrointestinal History: Denies:: Cirrhosis Gastroesphageal Reflux Hepatitis Liver Disease Hx of Problems?: No Genitourinary History: Positive for:: Urinary Tract Infection (remote history) Denies:: HX of Hemodialysis Kidney Stones HX of Peritoneal Dialysis: No Female Hx: Denies:: Currently Endometriosis Pelvic Inflammatory Problems with Breasts? Skin History: Denies:: History Skin Disorders? Pressure Ulcers Hx Musculoskeletal Problems?: Yes Musculoskeletal History: Positive for:: Joint Replacement (left knee) Musculoskeletal Trauma (Rt hip fx with hardware) Denies:: Back Injury Hx of Psycho/Social Problems?: Yes Psycho Social History: Positive for:: Hx Depression Denies:: Anxiety Bipolar Disorder Suicide Attempt Hx Surgeries?: Yes (left knee, gastric bypass, cholecystectomy, tumor ovary, hyster) Hx Any Other Health Problems?: Yes Other History: Positive for:: Endocrine Disease Hospitalization Thyroid Disease Denies:: Cancer History Blood Transfusions: Positive for:: Accept Blood Products? Blood Transfusions Denies:: Blood Transfuse Reaction Hx Diabetes: No (after weight loss, diet controlled) Hx Alcohol Use: NoHx Substance Use: No Smoking Status: Former Smoker (quit 40 years ago, smoked 2 pack per day) Have You Smoked inLast 12 mo: No Stop/Bang Treated for Sleep Apnea?: No Do You Have a CPAP Machine?: No S-Snoring: Do You Snore Loudly: No T-Tired: feel tired, fatigued: Yes O-Obsered: Observed not breath: No P-Blood Pressure: treated: Yes B- Body Mass Index > 35 kg/m2: No A- Age over 50: Yes N- Neck Large Circumference: No G- Gender Male: No BUDDY Total Score: 2 BUDDY Risk Assessment: Low Risk, <3 Yes Risk Assessment Category Category 1A: Patient has history of documented sleep apnea, and HAS NOT received any narcotic, sedative or anesthesia administration during this stay. Category 1B: Patient has history of documented sleep apnea, and HAS received any narcotic , sedative or anesthesia administration during this stay Category 2: Patient has SUSPECTED Obstructive Sleep Apnea, and HAS received any narcotic , sedative or anesthesia administration during this stay. Category 3: Patient has SUSPECTED Obstructive Sleep Apnea and HAS NOT received narcotic, sedative or anesthesia administration during this stay. Category 4: Outpatient in Procedural Areas with known sleep apnea or who screen positive for High Risk via the STOP/BANG questionnaire. Exam Exam Vital Signs Vital Signs Date Time Temp Pulse Resp B/P Pulse Ox O2 Delivery O2 Flow Rate FiO2 03/02/17 15:10 78 16 145/55 100 Simple Mask 10 03/02/17 15:05 80 14 137/60 100 Simple Mask 10 03/02/17 15:00 73 16 146/52 100 Simple Mask 10 03/02/17 14:55 36.7 75 16 141/51 100 Simple Mask 10 03/02/17 11:20 37.2 70 16 110/53 03/02/17 11:05 36.5 66 16 110/57 03/02/17 09:39 109/45 03/02/17 09:36 37.2 69 16 03/02/17 09:15 36.6 72 16 111/56 03/02/17 08:09 64 General Appearance: Alert, Oriented X3, Cooperative, No Acute Distress HEENT/AIRWAY: MP 2, Mouth Opening (ok) Lungs: Clear to Auscultation Heart: No Murmurs/Rubs/Gallops, Other (Irreg irreg) Meds/Labs/Diagnostics Admission Meds Current Medications Sodium Chloride (Normal Saline) 1,000 ml @ 100 mls/hr Q10H IV Last administered on 03/02/17 08:09; Start 03/01/17 at 19:40 Digoxin (LaNOXin) 0.25 mg DAILY PO Last administered on 03/02/17 08:09; Start 03/02/17 at 08:30 Fluoxetine HCl (Prozac) 10 mg DAILY PO Last administered on 03/02/17 08:09; Start 03/02/17 at 08:30 Levothyroxine Sodium (Synthroid) 50 mcg DAILYAC PO Last administered on 08:09; Start 03/02/17 at 07:30 Pantoprazole 20 mg 20 mg DAILY PO Last administered on 03/02/17 08:09; Start 03/02/17 at 08:30 Potassium Chloride 40 meq/ Dextrose/Water 520 ml @ 130 mls/hr ONCE ONCE IV Last administered on 03/02/17 09:34; Start 03/02/17 at 09:00; Stop 03/02/17 at 12:59; Status DC Clindamycin Phosphate/ Dextrose/Premix (Cleocin Inj/IV Premix) 50 ml @ 100 mls/ hr ONCE ONCE IV Last administered on 03/02/17 13:52; Start 03/02/17 at 13:44 ; Stop 03/02/17 at 14:13; Status DC Ropivacaine 30 ml 30 ml STK-MED ONCE INFILTRATE Last administered on 03/02/17 14:06; Start 03/02/17 at 14:06; Stop 03/02/17 at 14:13; Status DC Lactated Ringer's 1,000 ml @ ud STK-MED ONCE IV Last administered on 13:24; Start 03/02/17 at 13:24; Stop 03/02/17 at 14:13; Status DC Lactated Ringer's (Lr) 1,000 ml @ ud STK-MED ONCE IV Last administered on 03/02 14:37; Start 03/02/17 at 14:37; Stop 03/02/17 at 14:39; Status DC Labs Test 03/01/17 17:29 03/01/17 17:36 03/01/17 20:06 03/02/17 04:00 Hold Urine Received (Received) White Blood Count 5.0th/mm3 (3.8-10.1) Red Blood Count 3.94mil/mm3 (3.90-5.20) Hemoglobin 12.6g/dL (12.0-15.6) Hematocrit 37.7% (35.0-46.0) Mean Corpuscular Volume 95.7fL (81-100) Mean Corpuscular Hemoglobin 32.0pg (27.0-35.0) Mean Corpuscular Hemoglobin Concent 33.4% (32.0-37.0) Red Cell Distribution Width 13.9% (12.3-15.4) Platelet Count 141bil/L (150-400) Neutrophils (%) (Auto) 71.1% (40-74) Lymphocytes (%) (Auto) 19.3% (14-46) Monocytes (%) (Auto) 7.4% (4-12) Eosinophils (%) (Auto) 1.8% (0-5) Basophils (%) (Auto) 0.2% (0-3) Sodium Level 138mEq/L (134-144) Potassium Level 3.4mEq/L (3.5-5.2) Chloride Level 96mEq/L (97-108) Carbon Dioxide Level 21mmol/L (18-29) Blood Urea Nitrogen 24mg/dL (8-27) Creatinine 0.86mg/dL (0.57-1.00) Estimat Glomerular Filtration Rate 91mL/min (>59) Glucose Level 121mg/dL (60-99) Calcium Level 9.6mg/dL (8.5-10.1) Total Bilirubin 0.7mg/dL (0.0-1.2) Aspartate Amino Transf (AST/SGOT) 24U/L (0-50) Alanine Aminotransferase (ALT/SGPT) 16U/L (0-32) Alkaline Phosphatase 95U/L (25-165) Total Protein 6.8g/dL (6.4-8.4) Albumin 3.9g/dL (3.4-5.0) Hold Gupta Top Tube Received (Received) Urine Color Yellow (YELLOW) Urine Appearance Clear (CLEAR,HAZY) Urine pH 6.0 (5.0-8.0) Urine Specific [place] 1.010 (1.003-1.035) Urine Protein Negativemg/dL (NEG,TRACE) Urine Glucose (UA) Negativemg/dL (NEGATIVE) Urine Ketones Negativemg/dL (NEGATIVE) Urine Occult Blood Small (NEGATIVE) Urine Nitrite Negative (NEGATIVE) Urine Bilirubin Negative (NEGATIVE) Urine Urobilinogen Normalmg/dL (NORMAL) Urine Leukocyte Esterase Negative (NEGATIVE) Urine RBC 0-2/hpf (0-2) Urine WBC 0-5/hpf (0-5) Urine Epithelial Cells Few/hpf (NONE-MOD) Urine Crystals None seen (NONE SEEN) Urine Bacteria None/hpf (NONE-FEW) Urine Hyaline Casts None/lpf (NONE) Urine Granular Casts None seen (NONE SEEN) Urine Waxy Casts None seen (NONE SEEN) Urine Red Blood Cell Casts None seen (NONE SEEN) Urine White Blood Cell Casts None seen (NONE SEEN) Urine Mucus None seen (None Seen) Urine Trichomonas None seen (NONE SEEN) Urine Yeast None (NONE SEEN) Urinalysis Comment None Urine Culture Reflexed Not indicated Prothrombin Time 22.3sec (8.1-12.5) Prothromb Time International Ratio 2.05ratio Plan Impression Patient chart reviewed, patient interviewed and anesthestic plan with risks, benefits, and alternatives discussed, and informed consent obtained. ASA Physical Status: ASA3 Severe Disease Anesthetic Plan: GA Bene/Risks/Altern/Consents: Yes HP Complete Prior to Induction: Yes Other S/p 2U FFP to reverse therapeutic warfarin. AL and CVC if warranted intraop. Vitor Alcocer MD Mar 02, 2017 15:35
--- NOTE | 2017-03-02 15:45 | PCM.ANEP1 ---
Post Anesthesia PACU Phase 1 Assessment Date of Service: Mar 02, 2017 Vital Signs Vital Signs Date Time Temp Pulse Resp B/P Pulse Ox O2 Delivery O2 Flow Rate FiO2 03/02/17 15:10 78 16 145/55 100 Simple Mask 10 03/02/17 15:05 80 14 137/60 100 Simple Mask 10 03/02/17 15:00 73 16 146/52 100 Simple Mask 10 03/02/17 14:55 36.7 75 16 141/51 100 Simple Mask 10 03/02/17 11:20 37.2 70 16 110/53 03/02/17 11:05 36.5 66 16 110/57 03/02/17 09:39 109/45 03/02/17 09:36 37.2 69 16 03/02/17 09:15 36.6 72 16 111/56 03/02/17 08:09 64 Anesthetic Administered: GA Level of Alertness: Awake, talking Pain: No (no pain unless she moves) Pain Scale Score: 2 Nausea or Vomiting: No CV Function & Hydration Stable: Yes Airway Device: Oxygen Delivery: Room Air Lungs: Clear to Auscultation PACU Phase 2 Assessment Complications: No Follow up Care: No Patient Instructions Provided: N/A Comments Became tachycardic with wide complex to 130s at end of case, suspect AFib with RVR with aberrancy, resolved with valsalva and esmolol, remained HDS through this. Vitor Alcocer MD Mar 02, 2017 15:45
--- NOTE | 2017-03-02 15:54 | NUR ---
Social Work- Attempted Initial Assessment Data: EMR reviewed. Pt is a 81 year old female admitted for hip fracture per H&P. Pt's insurance is [employer] [facility]. Pt's PCP is listed as Other. Pt's readmit risk score is 5/8. Pt's NOK is Anamaria Mitchell, daughter, . Pt discussed in multidisciplinary rounds, pt is likely to need SNF at discharge. No order has been received at this time. PT will evaluate pt after surgery. SW went to pt's room to attempt assessment. Pt was in the OR at that time. Pt's grandson was in the room, requested that [facility] [employer] return tomorrow to complete assessment. SW provided [facility] Discharge Checklist to grandson and left it at bedside for review. SW will continue to follow. Assessment: Pt who will likely require SNF at discharge. Plan: SW to return tomorrow and complete assessment. PT to evaluate pt. Pt will likely need SNF at d/c, awaiting order. SW will continue to follow. Brianda Dickey, [facility] [employer]
[2017-03-02 16:37] LABS: INR 1.66 ratio
--- NOTE | 2017-03-02 17:52 | NUR ---
Shift Note: Patient received K electrolyte replacement and 2 units of FFP (without incident) today before surgery. Received patient back from PACU with surgical incision CDI, no drain, pt. A&O, VSS. Pain well controlled. Eager to eat dinner. SCD's are on. Will continue to monitor. Of note, pt. VERY [place].
[2017-03-02] MEDS: oxyCODONE-Acetamin 5-325 mg Tablet PO PRN (18:15)
[2017-03-02] MEDS: Senna-Docusate 8.6-50 mg Tablet PO SCH (20:57)
[2017-03-03] VITALS (17 sets, daily range): BP systolic 88–119; BP diastolic 39–76; PULSE 59–82; RESP 14–18; O2SAT 98
[2017-03-03] MEDS: 0.9% Sodium Chloride 1,000 ML IV SCH ×3 (01:11→19:45)
--- NOTE | 2017-03-03 04:58 | NUR ---
Pain and Straight Cath Pt. was straight cath in beginning of shift. ~350 ml out of bladder. Pt. reported pain after the procedure at left hip. IV morphine 1mg given and effective. Will continue to monitor.
[2017-03-03] MEDS: 0.9% Sodium Chloride 250 ML IV SCH (05:00)
[2017-03-03 05:56] LABS: BASOPHILS % (AUTO) 0 % (0-3); EOSINOPHILS % (AUTO) 0.1 % (0-5); Mean Corpuscular Hemoglobin 32.7 pg (27.0-35.0); NEUTROPHILS % (AUTO) 75.8 % (40-74); Platelet Count 86 bil/L (150-400)
[2017-03-03 06:03] LABS: INR 2.13 ratio
[2017-03-03 06:15] LABS: Magnesium 1.9 mg/dL (1.6-2.6)
--- NOTE | 2017-03-03 08:34 | PCM.PNORTH ---
Subjective Date of Service: Mar 03, 2017 Visit Information: Reason for Visit Hip Fx Surgery/Surgery Date L HIP PINNING 03/02/17 Post-Op Day # Date of Admission: Mar 01, 2017 at 19:55 Hospital Day # Subjective Patient is status post day #1 left hip IM nail. Patient is doing well, lying comfortably in bed. States her pain is well controlled and she feels pretty good today. Objective Exam Objective Patient is alert and oriented 3, though very hard of hearing. Answering questions appropriately. Patient is sitting up in the bed and not in acute distress today. Dressing is clean dry and intact. Calf is soft and nontender. Sensation and pulses intact, patient able to wiggle toes. Vital Signs and I/O Vital Sign - Last Date Time Temp Pulse Resp B/P Pulse Ox O2 Delivery O2 Flow Rate FiO2 03/03/17 05:32 74 03/03/17 05:15 36.4 16 103/53 Nasal Cannula 2.00 100 03/02/17 15:55 99 Intake and Output 03/02/17 03/02/17 03/03/17 Cumulative From/Thru 15:00 23:00 07:00 03/01/17 17:31 - 03/03/17 05:34 Intake Total 1800 ml 615 ml 840 ml 5116 ml Output Total 250 ml 250 ml Balance 1550 ml 615 ml 840 ml 4866 ml Intake Oral 0 ml 440 ml 440 ml IV Total 1050 ml 175 ml 840 ml 3926 ml FFP 750 ml 750 ml Output Urine Total 150 ml 150 ml Estimated Blood Loss 100 ml 100 ml # Voids 1 1 2 # Bowel Movements 0 0 0 Lab & Micro Results Laboratory Tests Test 03/02/17 16:02 03/03/17 05:30 Prothrombin Time 17.9sec (8.1-12.5) 23.1sec (8.1-12.5) Prothromb Time International Ratio 1.66ratio 2.13ratio White Blood Count 7.4th/mm3 (3.8-10.1) Red Blood Count 2.05mil/mm3 (3.90-5.20) Hemoglobin 6.7g/dL (12.0-15.6) Hematocrit 20.3% (35.0-46.0) Mean Corpuscular Volume 99.0fL (81-100) Mean Corpuscular Hemoglobin 32.7pg (27.0-35.0) Mean Corpuscular Hemoglobin Concent 33.0% (32.0-37.0) Red Cell Distribution Width 14.1% (12.3-15.4) Platelet Count 86bil/L (150-400) Neutrophils (%) (Auto) 75.8% (40-74) Lymphocytes (%) (Auto) 10.7% (14-46) Monocytes (%) (Auto) 13.0% (4-12) Eosinophils (%) (Auto) 0.1% (0-5) Basophils (%) (Auto) 0% (0-3) Activated Partial Thromboplast Time 35.0sec (22.8-33.0) Sodium Level 137mEq/L (134-144) Potassium Level 5.4mEq/L (3.5-5.2) Chloride Level 103mEq/L (97-108) Carbon Dioxide Level 24mmol/L (18-29) Blood Urea Nitrogen 21mg/dL (8-27) Creatinine 0.72mg/dL (0.57-1.00) Estimat Glomerular Filtration Rate 112mL/min (>59) Glucose Level 121mg/dL (60-99) Calcium Level 7.9mg/dL (8.5-10.1) Magnesium Level 1.9mg/dL (1.6-2.6) Result Diagram: 03/03/17 0530 03/03/17 0530 Assessment & Plan Impression Status post day #1 left hip IM nail. Patient is stable, pain well controlled. Problems: Plan Patient will begin physical therapy today with gait training with walker. Patient able to weight-bear as tolerated today. Dressing will remain clean dry and intact until tomorrow and will be changed. Patient will resume her warfarin that she takes at home for DVT prophylaxis. We will utilize oral narcotics as needed for pain control, most likely hydrocodone. Patient does not have help at home, anticipate that she will remain in the hospital for 2 more days, will most likely need discharge to SNF depending on physical therapy recommendation. Thank you to hospitalist team for continuing to manage the patient's other medical concerns. Resuscitation Status: DNR/DNI:Do Not Resuscitate/Intubate Elias Shaw PA-C Mar 03, 2017 08:34
[2017-03-03] MEDS: Pantoprazole 20 mg ER24 Tablet PO SCH (08:52)
[2017-03-03] MEDS: Senna-Docusate 8.6-50 mg Tablet PO SCH ×2 (08:54→21:01)
[2017-03-03] MEDS ORDERED: 0.9% Sodium Chloride 250 ML IV ONE (09:10)
[2017-03-03] MEDS: oxyCODONE-Acetamin 5-325 mg Tablet PO PRN ×2 (10:32→16:17)
[2017-03-03] MEDS: diphenhydrAMINE 25 mg Capsule PO PRN ×2 (10:32→16:17)
--- NOTE | 2017-03-03 10:45 | NUR ---
Blood Admin Consent signed and in patient's paper chart. Started transfusing first unit of PRBC at 1043. VS taken prior to administration and documented. Blood product double checked by 2 RNs. Patient premedicated prior to start of administration. Addendum: 03/03/17 at 1108 by MINA MUNOZ RN After first 15 minutes of blood transfusion at 50mLs/hr, VS were taken again. Temperature increased and BP decreased. Blood admin stopped and paged. Awaiting call back from hospitalist. Addendum: 03/03/17 at 1145 by MINA MUNOZ RN MD aware of patient's condition and does not believe the change in VS to be a reaction with patient being hypotensive prior to administration. Hospitalist did state that he will talk with ortho team to come assess surgical site for any s/s of bleeding. Dressing on left hip is CDI at this time with no drainage present. LLE slightly more swollen than RLE but skin is not tight. Feet swollen bilaterally. Continuing blood administration, assessing VS frequently, IV fluids restarted to support BP. Patient asymptomatic at this time, denies pain, and is resting calmly in bed. Addendum: 03/03/17 at 1636 by MINA MUNOZ RN Second unit of PRBC's started. VSS prior to transfusion. Patient premedicated before start of transfusion. Blood product double checked with another RN.
--- NOTE | 2017-03-03 11:12 | PCM.CONPHA ---
Subjective Left hip pain Reason for Pharmacy Consult: Anticoagulation Management Assessment/Plan Assessment/Plan Warfarin Management by Pharmacy Indication: AFib Home Dose: 4 mg Monday thru Monday INR Goal: 2-3 Duration: TBD INR: 2.13 Assessment/Plan -Therapeutic INR. Two units of FFP given prior to surgery yesterday to lower INR but level has rebounded. Last dose taken morning of 03/01/17. - Will order warfarin 4 mg this evening and monitor trend. Thanks, David Herring Pharm.D. David Herring Mar 03, 2017 11:12
--- NOTE | 2017-03-03 15:16 | PCM.PNMED ---
Subjective Date of Service Mar 03, 2017 Subjective Pain controlled and patient comfortable. Significant hemoglobin drop noted. Hemoglobin dropped from 12.6 to 6.7. 2 units of PRBC transfusion ordered. Exam Vital Signs Vital Sign - Last Date Time Temp Pulse Resp B/P Pulse Ox O2 Delivery O2 Flow Rate FiO2 03/03/17 14:35 37.3 59 104/55 03/03/17 11:40 14 03/03/17 09:03 98 Nasal Cannula 2.00 03/03/17 05:15 100 Intake and Output 03/02/17 03/02/17 03/03/17 Cumulative From/Thru 14:59 22:59 06:59 03/01/17 17:31 - 03/03/17 05:34 Intake Total 1800 ml 615 ml 840 ml 5116 ml Output Total 250 ml 250 ml Balance 1550 ml 615 ml 840 ml 4866 ml Intake Oral 0 ml 440 ml 440 ml IV Total 1050 ml 175 ml 840 ml 3926 ml FFP 750 ml 750 ml Output Urine Total 150 ml 150 ml Estimated Blood Loss 100 ml 100 ml # Voids 1 1 2 # Bowel Movements 0 0 0 Exam General: Alert, Oriented X3, Cooperative, No Acute Distress Head: Normal Eyes: Scleral Anicteric Nose: Mucous Membr Moist/Isabel Neck: Supple Chest & Lungs: Chest Wall Normal, Clear to auscultation & percussion Cardiovascular: Regular Rate/Rhythm. Systolic murmur at LLSB Pulses: NL carotid, radial, femoral, DP, PT Abdomen: Non-tender, Non-distended, Normoactive bowel tones, Soft Extremities: No cyanosis/clubbing/edma bilat. Left hip surgical site cleanly dressed Neurological: Grossly Neurologically Intact, Normal Speech Additional Information: Psych: calm, appropriate IVs and Medications Medications Reviewed: Medications were reviewed in detail Lab and Diagnostics Result Diagram: 03/03/1752903/03/17 0530 X-Rays, CTs and MRIs PROCEDURE: X-RAY LEFT TIBIA/FIBULA, TWO VIEWS ([id number]) IMPRESSION: No fracture. No acute osseous lesion. If there are persistent symptoms or clinical suspicion for pathology, then repeat radiographs or advanced imaging (CT, MRI or bone scan) should be considered for further evaluation. PROCEDURE: X-RAY LEFT HIP COMPLETE, MINIMUM TWO VIEWS ([id number]) IMPRESSION: Intertrochanteric left femur fracture PROCEDURE: X-RAY LEFT FEMUR, TWO VIEWS ([id number]) IMPRESSION: No distal left femur fracture. PROCEDURE: X-RAY CHEST ONE VIEW, PORTABLE ([id number]) IMPRESSION: No acute cardiopulmonary disease process. Assessment & Plan 81-year-old female that presented to the emergency department post ground-level fall with a left femur fracture and a history of osteoporosis, hypertension, A. fib on Coumadin # Acute left intertrochanteric femur fracture, present upon admission and ongoing - Patient presented with a history of osteoporosis and ground level fall resulting in left femur fracture demonstrated on x-ray - Tentative plan for surgery on 03/02/17 pending reversal of INR # Anemia requiring transfusion,acute,not poa -Significant hemoglobin drop noted. from 12.6 to 6.7. Transfuse 2 units of PRBC -ok to resume warfarin per orthopedics.. # History of aortic stenosis -Aortic area 1cm2 in 2010. Echo ordered -Continue IV fluids NS at 80ml/h # Chronic atrial fibrillation on Coumadin, present on admission. - Rate controlled. - Continue with home dose Dig. - Continue to hold Coumadin for now - Received FFP prior to surgery # Coronary artery disease with triple bypass, present upon admission. Presumed stable. - Continue outpatient statin medication and blood pressure management - Most current echo results available at this time are from 2008 indicating tricuspid aortic valve stenosis, severe with mitral annular calcification and moderate mitral insufficiency, normal ejection fraction. - Patient should be scheduled for an echo if one has not been done within the last year # Chronic hypothyroidism, present on admission. Presumed stable. - Continue outpatient medication # History of hypertension, present upon admission - Currently under control. - Continue outpatient medication # Acute hypokalemia, present on admission. - Replete and followup Dispo: 2-3 days VTE Mechanical Devices: Intermittant Pneumatic CD Resuscitation Status: DNR/DNI:Do Not Resuscitate/Intubate David Phillips MD Mar 03, 2017 15:15
--- NOTE | 2017-03-03 15:18 | DRSVH ---
[facility] [address] [place] [address] Echocardiogram Report Name: CHIDI RODRIGUES SStudy Date: 03/03/2017 Height: 62.5 in Hospital Exam Location: [facility] Weight: 145 lb Gender: Female BSA: 1.7 m2 : 1935 Age: 81 yrs BP: 106/69 mmHg Reason For Study: Aortic Stenosis Ordering Physician: HOSPITALIST [facility] Performed By: Itzel Pimentel Referring Physician: [facility] Hospitalist Interpretation Summary Left ventricular wall thickness is normal. The ejection fraction is estimated to be 60-65%. The left atrium is severely dilated. The right atrium is mild to moderately dilated. There is mild mitral regurgitation. There is a prosthetic aortic valve. The aortic valve mean gradient is 16 mmHg. There is mild tricuspid regurgitation. The right ventricular systolic pressure is estimated at 30 mmHg assuming a right atrial pressure of 8 mm Hg. There is trace aortic regurgitation. Procedure: A two-dimensional transthoracic echocardiogram with color flow and Doppler was performed. The study quality was technically adequate. Comparison is made with the echocardiogram of 03/18/2011. The patient was in atrial fibrillation with heart rates between 57-91 bpm during the exam. Left Ventricle: The left ventricle is normal in size. Left ventricular wall thickness is normal. The ejection fraction is estimated to be 60-65%. Diastolic function could not be accurately assessed due to atrial fibrillation. Right Ventricle: The right ventricle is normal size. Atria: The left atrium is severely dilated. The right atrium is mild to moderately dilated. The interatrial septum is intact with no evidence for an atrial septal defect. Mitral Valve: The mitral valve leaflets appear moderately thickened, but open well. There is mild mitral annular calcification. There is mild mitral regurgitation. Aortic Valve: There is a prosthetic aortic valve. The aortic valve mean gradient is 16 mmHg. There is trace aortic regurgitation. Tricuspid Valve: The tricuspid valve leaflets are thin and pliable. There is mild tricuspid regurgitation. The right ventricular systolic pressure is estimated at 30 mmHg assuming a right atrial pressure of 8 mm Hg. Pulmonic Valve: The pulmonic valve is not well seen, but is grossly normal. There is mild to moderate pulmonic regurgitation. Great Vessels: The aortic root is normal size. The ascending aorta could not be visualized. Pericardium/ Pleura There is no pericardial effusion. There is no pleural effusion. MMode/2D Measurements & Calculations LVIDd: 4.5 cm LVIDs: 3.2 cm LA A2 area: 28.8 cm FS: 29.0 % LA A4 area: 24.7 cm IVSd: 0.91 cm LA length (vol): 5.7 cm LVPWd: 0.92 cm LA vol: 105.2 ml LA vol index: 62.7 ml/m2 RA long axis: 5.2 cm LVOT diam: 1.9 cm RA area: 15.8 cm RA vol: 40.6 ml RA : 24.2 ml/m2 LV mckeon. diameter/BSA (cm/m^2): 2.7 LV sys. diameter/BSA (cm/m^2): 1.9 TAPSE: 1.2 cm Doppler Measurements & Calculations Ao V2 max: 275.8 cm/sec MVA(VTI): 1.4 cm2 Ao max P.4 mmHg Ao mean P.4 mmHg LVOT Max Ezio: 98.3 cm/sec ROXY(I,D): 1.2 cm sev ratio: 0.42 TR max ezio: 231.8 cm/sec MV V2 mean: 58.3 cm/sec TR max P.6 mmHg MV mean P.0 mmHg PA V2 max: 89.4 cm/sec MV V2 VTI: 40.2 cm PA mean P.8 mmHg Ao V2 mean: 185.7 cm/sec LV V1 max P.9 mmHg Ao V2 VTI: 48.1 cm LV V1 VTI: 20.1 cm ROXY(V,D): 1.0 cm2 PA V2 mean: 63.0 cm/sec ROXY indexed to BSA (cm^2/m^2): 0.71 PA pr(Accel): 21.9 mmHg Electronically signed by: Jeremy Martines on Reading Physician:03/03/2017 03:17 PM
--- NOTE | 2017-03-03 16:54 | NUR ---
BP Patient was hypotensive at the start of this shift and continued to stay hypotensive into transfusion of the first unit of PRBC's. Consulted with the hospitalist and he decided to continue IV fluids and have NS infusing at 80mLs/hr. IV fluids infusing. Continuing to assess BP before, frequently during, and after blood product administration. Patient's BP has increased slightly and is more WNL at this time.
[2017-03-04] VITALS (8 sets, daily range): BP systolic 102–132; BP diastolic 55–74; PULSE 61–85; RESP 16–18; O2SAT 92–97
[2017-03-04] MEDS: 0.9% Sodium Chloride 1,000 ML IV SCH (01:03)
--- NOTE | 2017-03-04 02:32 | NUR ---
PAIN; no request for pain rx. Ortho checks wnl. Dressing c/d/i. Bedpan for urination. No c/o nausea or vomiting. V.S.S.
[2017-03-04] MEDS: oxyCODONE-Acetamin 5-325 mg Tablet PO PRN ×3 (02:50→20:02)
--- NOTE | 2017-03-04 04:29 | NUR ---
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
[2017-03-04 05:33] LABS: BASOPHILS % (AUTO) 0.1 % (0-3); EOSINOPHILS % (AUTO) 3.1 % (0-5); MONOCYTES % (AUTO) 10.3 % (4-12); Mean Corpuscular Hemoglobin 32.4 pg (27.0-35.0); Mean Corpuscular Volume 95.4 fL (81-100); NEUTROPHILS % (AUTO) 76.8 % (40-74); Platelet Count 70 bil/L (150-400)
[2017-03-04] MEDS: Pantoprazole 20 mg ER24 Tablet PO SCH (08:59)
[2017-03-04] MEDS: Senna-Docusate 8.6-50 mg Tablet PO SCH ×2 (09:00→20:30)
--- NOTE | 2017-03-04 09:13 | PCM.PNORTH ---
Subjective Date of Service: Mar 04, 2017 Visit Information: Reason for Visit Hip Fx Surgery/Surgery Date L HIP PINNING 03/02/17 Post-Op Day # Date of Admission: Mar 01, 2017 at 19:55 Hospital Day # Subjective Patient is status post day #2 left hip IM nail. Patient states her pain is well controlled, she is doing pretty well today. Objective Exam Objective Patient is alert and oriented 3. Answering questions appropriately. Patient is sitting up in the bed and not in acute distress today. Dressing is clean dry and intact. Upon dressing removal, sanjuana intact, no erythema or discharge from the incisions. Calf is soft and nontender. Sensation and pulses intact, patient able to wiggle toes. Vital Signs and I/O Vital Sign - Last Date Time Temp Pulse Resp B/P Pulse Ox O2 Delivery O2 Flow Rate FiO2 03/04/17 08:59 65 03/04/17 04:50 36.8 17 132/74 95 Nasal Cannula 2.00 03/03/17 05:15 100 Intake and Output 03/03/17 03/03/17 03/04/17 Cumulative From/Thru 15:00 23:00 07:00 03/01/17 17:31 - 03/04/17 06:02 Intake Total 1051 ml 2245 ml 1529 ml 9941 ml Output Total 350 ml 650 ml 750 ml 2000 ml Balance 701 ml 1595 ml 779 ml 7941 ml Intake Oral 720 ml 750 ml 800 ml 2710 ml IV Total 1175 ml 729 ml 5830 ml Packed Cells 331 ml 320 ml 651 ml FFP 750 ml Output Urine Total 350 ml 650 ml 750 ml 1900 ml Estimated Blood Loss 100 ml # Voids 1 3 # Bowel Movements 0 0 0 0 Lab & Micro Results Laboratory Tests Test 03/04/17 05:23 White Blood Count 6.7th/mm3 (3.8-10.1) Red Blood Count 2.38mil/mm3 (3.90-5.20) Hemoglobin 7.7g/dL (12.0-15.6) Hematocrit 22.7% (35.0-46.0) Mean Corpuscular Volume 95.4fL (81-100) Mean Corpuscular Hemoglobin 32.4pg (27.0-35.0) Mean Corpuscular Hemoglobin Concent 33.9% (32.0-37.0) Red Cell Distribution Width 14.7% (12.3-15.4) Platelet Count 70bil/L (150-400) Neutrophils (%) (Auto) 76.8% (40-74) Lymphocytes (%) (Auto) 9.4% (14-46) Monocytes (%) (Auto) 10.3% (4-12) Eosinophils (%) (Auto) 3.1% (0-5) Basophils (%) (Auto) 0.1% (0-3) Prothrombin Time 21.7sec (8.1-12.5) Prothromb Time International Ratio 2.00ratio Sodium Level 136mEq/L (134-144) Potassium Level 4.0mEq/L (3.5-5.2) Chloride Level 101mEq/L (97-108) Carbon Dioxide Level 23mmol/L (18-29) Blood Urea Nitrogen 22mg/dL (8-27) Creatinine 0.80mg/dL (0.57-1.00) Estimat Glomerular Filtration Rate 99mL/min (>59) Glucose Level 112mg/dL (60-99) Calcium Level 7.4mg/dL (8.5-10.1) Total Bilirubin 0.8mg/dL (0.0-1.2) Aspartate Amino Transf (AST/SGOT) 16U/L (0-50) Alanine Aminotransferase (ALT/SGPT) 10U/L (0-32) Alkaline Phosphatase 56U/L (25-165) Total Protein 4.6g/dL (6.4-8.4) Albumin 2.8g/dL (3.4-5.0) Result Diagram: 03/04/17 0523 03/04/17 0523 Assessment & Plan Impression Status post a #2 left hip I am nail. Patient's pain is controlled, has not moved much with physical therapy so far. Most likely will require SNF transfer. Problems: Plan Patient will continue physical therapy today with gait training with walker. Patient able to weight-bear as tolerated today. Dressing will remain clean dry and intact until tomorrow and will be changed. Patient will resume her warfarin that she takes at home for DVT prophylaxis. We will utilize oral narcotics as needed for pain control, most likely hydrocodone. Patient does not have help at home, anticipate that she will remain in the hospital for 1 more days, will most likely need discharge to SNF depending on physical therapy recommendation. Patient will also remain until hemoglobin and hematocrit are more stable, blood given yesterday. Thank you to hospitalist team for continuing to manage the patient's other medical concerns. She will not be transferred until approved by a hospitalist and hemodynamically stable as well. Resuscitation Status: DNR/DNI:Do Not Resuscitate/Intubate Elias Shaw PA-C Mar 04, 2017 09:12
--- NOTE | 2017-03-04 09:38 | PCM.PHAPRO ---
Progress Warfarin Management by Pharmacy: -Indication: afib -Home Dose: warfarin 4mg daily -Inr Goal: 2-3 -Drug Interactions: fluoxetine (platelets) -Concurrent Anticoagulation: none -Coagulation Trends: Mar 04-Feb 2.13 2.0 -0.13 4 MG 4MG -Plan: noted H/H 7.7/22.7, Platelets 70. will continue with home dose of warfarin 4mg this evening and monitor Kita Rascon [facility] Mar 04, 2017 09:38
--- NOTE | 2017-03-04 12:09 | PCM.PNMED ---
Subjective Date of Service Mar 04, 2017 Subjective pain controlled. post Tx Hb 7.7 Exam Vital Signs Vital Sign - Last Date Time Temp Pulse Resp B/P Pulse Ox O2 Delivery O2 Flow Rate FiO2 03/04/17 09:09 36.8 78 16 122/56 92 Room Air 03/04/17 04:50 2.00 03/03/17 05:15 100 Intake and Output 03/03/17 03/03/17 03/04/17 Cumulative From/Thru 15:00 23:00 07:00 03/01/17 17:31 - 03/04/17 06:02 Intake Total 1051 ml 2245 ml 1529 ml 9941 ml Output Total 350 ml 650 ml 750 ml 2000 ml Balance 701 ml 1595 ml 779 ml 7941 ml Intake Oral 720 ml 750 ml 800 ml 2710 ml IV Total 1175 ml 729 ml 5830 ml Packed Cells 331 ml 320 ml 651 ml FFP 750 ml Output Urine Total 350 ml 650 ml 750 ml 1900 ml Estimated Blood Loss 100 ml # Voids 1 3 # Bowel Movements 0 0 0 0 Exam General: Alert, Oriented X3, Cooperative, No Acute Distress Head: Normal Eyes: Scleral Anicteric Nose: Mucous Membr Moist/[place] Neck: Supple Chest & Lungs: Chest Wall Normal, Clear to auscultation & percussion Cardiovascular: Regular Rate/Rhythm. Systolic murmur at LLSB Pulses: NL carotid, radial, femoral, DP, PT Abdomen: Non-tender, Non-distended, Normoactive bowel tones, Soft Extremities: No cyanosis/clubbing/edma bilat. Left hip surgical site cleanly dressed Neurological: Grossly Neurologically Intact, Normal Speech Additional Information: Psych: calm, appropriate IVs and Medications Medications Reviewed: Medications were reviewed in detail Lab and Diagnostics Result Diagram: 03/04/1752203/04/17522 X-Rays, CTs and MRIs PROCEDURE: X-RAY LEFT TIBIA/FIBULA, TWO VIEWS ([id number]) IMPRESSION: No fracture. No acute osseous lesion. If there are persistent symptoms or clinical suspicion for pathology, then repeat radiographs or advanced imaging (CT, MRI or bone scan) should be considered for further evaluation. PROCEDURE: X-RAY LEFT HIP COMPLETE, MINIMUM TWO VIEWS ([id number]) IMPRESSION: Intertrochanteric left femur fracture PROCEDURE: X-RAY LEFT FEMUR, TWO VIEWS ([id number]) IMPRESSION: No distal left femur fracture. PROCEDURE: X-RAY CHEST ONE VIEW, PORTABLE ([id number]) IMPRESSION: No acute cardiopulmonary disease process. Cardiac Echo Impressions nterpretation Summary Left ventricular wall thickness is normal. The ejection fraction is estimated to be 60-65%. The left atrium is severely dilated. The right atrium is mild to moderately dilated. There is mild mitral regurgitation. There is a prosthetic aortic valve. The aortic valve mean gradient is 16 mmHg. There is mild tricuspid regurgitation. The right ventricular systolic pressure is estimated at 30 mmHg assuming a right atrial pressure of 8 mm Hg. There is trace aortic regurgitation. Additional Diagnostics Date of Service: Mar 02, 2017 Pre Operative Diagnosis Left hip displaced intertrochanteric fracture Post Operative Diagnosis Same Procedure Left hip closed reduction cephalomedullary fixation Surgeon Surgeon:Zhen Long Assistants: Tanisha Colbert DO Indication for Procedure left hip fracture Findings left displaced intertrochanteric fx Details of Procedure Implant: OneBuckResumeuy Synthes 12 mm x 380 mm TFN 125 deg; 56mm distal interlock Assessment & Plan 81-year-old female that presented to the emergency department post ground-level fall with a left femur fracture and a history of osteoporosis, hypertension, A. fib on Coumadin # Acute left intertrochanteric femur fracture, present upon admission and ongoing - Patient presented with a history of osteoporosis and ground level fall resulting in left femur fracture demonstrated on x-ray - status post Left hip closed reduction cephalomedullary fixation 03/02 # Anemia requiring transfusion,acute,not poa -Significant hemoglobin drop noted. from 12.6 to 6.7. Transfused 2 units of PRBC 03/03.Hb 7.7 today -ok to resume warfarin per orthopedics.. -anemia periop no need for further workup for now # History of aortic stenosis s/p replacement - Echo as above # Chronic atrial fibrillation on Coumadin, present on admission. - Rate controlled. - Continue with home dose Dig. - Continue Coumadin - Received FFP prior to surgery # Coronary artery disease with triple bypass, present upon admission. Presumed stable. - Continue outpatient statin medication and blood pressure management - Most current echo results available at this time are from 2008 indicating tricuspid aortic valve stenosis, severe with mitral annular calcification and moderate mitral insufficiency, normal ejection fraction. - Patient should be scheduled for an echo if one has not been done within the last year # Chronic hypothyroidism, present on admission. Presumed stable. - Continue outpatient medication # History of hypertension, present upon admission - Currently under control. - Continue outpatient medication # Acute hypokalemia, present on admission. - Replete and followup Dispo:1-2 days,possibly to SNF VTE Mechanical Devices: Intermittant Pneumatic CD Resuscitation Status: DNR/DNI:Do Not Resuscitate/Intubate David Phillips MD Mar 04, 2017 12:09
--- NOTE | 2017-03-04 17:33 | NUR ---
Social Work: Initial Assessment/Multi-Disciplinary Rounds D: EMR reviewed. Please see Initial Assessment linked to this note for more information. Pt is an 81 y/o male [place] - readmit risk score of 5 - for hip fx - ground level fall - per H&P. Pt's insurance is [employer]. PCP is Dr. Parham at [facility]. SW met with pt at bedside to conduct initial assessment. Pt was alert and oriented x3. SW explained role and wrote phone number on white board. SW provided [facility] Discharge Planning Checklist and encouraged pt to contact SW for any discharge planning questions. Pt discussed in multidisciplinary rounds. Pt is not medically stable for discharge at this time, anticipate 1-2 more days. SW received MD order for SNF placement. SW discussed recommendation with pt and pt agreeable. SW provided choicelist. Pt chose [facility]. SW provided access and left voicemail with referral information. Pt lives at home alone in [place]. Pt lives in a single-story home with 1 threshold step to enter. Pt has hx at [facility] - no hx of HH. Pt reported that she has completed DPOA/advanced directive ppw and SW encouraged pt to provide a copy to the hospital. A: Pt who is independent at baseline and has the capacity for self-care. P: Pt anticipated to discharge to [facility] via wheelchair van. CHERISE made referral and provided access. SW to follow-up with [facility] tomorrow regarding referral. SW will continue to follow for needs until time of discharge. VEE Mahmood Addendum: 03/04/17 at 1739 by SULTANA GRESHAM Amended: Links added.
--- NOTE | 2017-03-04 18:35 | NUR ---
Pain Patient continues to deny pain this shift with the exception of intermittent pain with activity. Patient declines any pain medication at this time. Care is ongoing.
[2017-03-05 00:41] VITALS: BP 106/59; PULSE 65; RESP 16; O2SAT 96
--- NOTE | 2017-03-05 01:14 | NUR ---
INCONTINENT: At HS pt. called for assist with incontinent care. Stated "I am wet due to the water pill I have been taking". Pt. was incontinent of urine. Incontinent care done. Pt. also c/o hip pain during incontinent care. Medicated with 1 Percocet, helpful. Pt. resting with no further c/o pain. On going care.
[2017-03-05] MEDS: oxyCODONE-Acetamin 5-325 mg Tablet PO PRN ×4 (03:47→17:08)
[2017-03-05 05:55] LABS: BASOPHILS % (AUTO) 0.2 % (0-3); EOSINOPHILS % (AUTO) 4.3 % (0-5); MONOCYTES % (AUTO) 6.9 % (4-12); Mean Corpuscular Hemoglobin 32.3 pg (27.0-35.0); Mean Corpuscular Volume 95.1 fL (81-100); NEUTROPHILS % (AUTO) 77.4 % (40-74); Platelet Count 85 bil/L (150-400)
[2017-03-05 06:05] LABS: INR 1.97 ratio
[2017-03-05 06:21] VITALS: PULSE 69
[2017-03-05] MEDS: Senna-Docusate 8.6-50 mg Tablet PO SCH ×2 (08:30→21:24)
[2017-03-05] MEDS: Pantoprazole 20 mg ER24 Tablet PO SCH (08:31)
[2017-03-05 08:36] VITALS: BP 105/55; PULSE 66; RESP 17; O2SAT 97
--- NOTE | 2017-03-05 10:45 | NUR ---
SNF TRANSFER UPDATE T/C to V[place] at [facility] who confirmed [facility] is full and does not have any beds available at this time. [facility] T/C to Lashay at [facility] with referral. CHERISE provided access. CHERISE confirmed [facility] - who is contracted with [place] - is full and can't accept pt at this time. Lashay will review pt's chart and update CHERISE on whether they can accept pt today. VEE Mahmood Addendum: 03/05/17 at 1507 by SULTANA GONZALES SS T/C from Lashay at [facility] who stated they do not have an admitting RN today and can't accept pt today but can review pt tomorrow. Per Lashay, [facility] computers went down and they weren't able to review pt. Lashay requested Facesheet and medication list - Lashay stated she could see all other information. CHERISE faxed requested information and updated . to cancel discharge orders due to placement. SW to follow-up with [facility] in the AM regarding pt's placement. VEE Mahmood
--- NOTE | 2017-03-05 13:01 | PCM.DIMED ---
Discharge Instructions Date of Service Mar 05, 2017 Dates of Hospitalization Mar 01, 2017 at 19:55 Discharge Diagnosis Discharge Diagnosis # Acute left intertrochanteric femur fracture, present upon admission and ongoing - status post Left hip closed reduction cephalomedullary fixation 03/02 # Anemia requiring transfusion,acute,not poa # Chronic atrial fibrillation on Coumadin, present on admission. # Coronary artery disease with triple bypass,history of AVR , present upon admission. Presumed stable. # Chronic hypothyroidism, present on admission. Presumed stable. # History of hypertension, present upon admission # Acute hypokalemia, present on admission. Diet Discharge Diet: Low fat, Low Sodium, Heart Healthy Activity Discharge Activity: Other (continue PT at SNF ) Call your provider Call your provider for: Fever or Chills, Shortness of breath, Bleeding, Chest pain, Vomitting, Excessive diarrhea, Weakness (unilateral) Patient Instructions Patient Instructions # You were hospitalized due to left hip fracture and underwent surgery. Please continue physical therapy at group home facility.Please continue warfarin for DV prophylaxis and Afib. # You also had postoperative anemia and transfused 2 units of blood. Please continue iron tablets. Follow-up with PCP in: 1 week (1 week after discharge from SNF ) Provider: Zhen Long MD Follow-up in: 2 weeks Follow-up with [facility] in: 2 weeks ([facility] ) David Phillips MD Mar 05, 2017 13:01
[2017-03-05] MEDS ORDERED: OXYC1TAB24 PO (13:12)
[2017-03-05] MEDS ORDERED: IRON1TAB4 PO (13:17)
[2017-03-05 13:37] VITALS: BP 112/61; PULSE 71; RESP 18; O2SAT 98
--- NOTE | 2017-03-05 13:51 | PCM.PHAPRO ---
Progress Warfarin Management by Pharmacy: -Indication: afib -Home Dose: warfarin 4mg daily -Inr Goal: 2-3 -Drug Interactions: fluoxetine (platelets) -Concurrent Anticoagulation: none -Coagulation Trends: Mar 04-Mar 05-Feb 2.13 2.0 1.97 -0.13 -0.03 4 MG 4MG 4MG -H/H 7.3/21.5 Platelets 85 Plan: will continue with warfarin 4mg this evening Kita Rascon [facility] Mar 05, 2017 13:51
[2017-03-05] MEDS ORDERED: FERR325T40 PO (13:58)
--- NOTE | 2017-03-05 15:37 | PCM.PNORTH ---
Subjective Date of Service: Mar 05, 2017 Visit Information: Reason for Visit Hip Fx Surgery/Surgery Date L HIP nail 03/02/17 Post-Op Day # Date of Admission: Mar 01, 2017 at 19:55 Hospital Day # Subjective Status post a #3 left hip IM nail. Patient states she is doing well, pain is well controlled and she did a little bit better with physical therapy Postop General: No Complaints, No Shortness of Breath, No Chest Pain Objective Exam Objective Patient is alert and oriented 3. Answering questions appropriately. Patient is sitting up in the bed and not in acute distress today. Dressing is clean dry and intact. Calf is soft and nontender. Sensation and pulses intact, patient able to wiggle toes. Vital Signs and I/O Vital Sign - Last Date Time Temp Pulse Resp B/P Pulse Ox O2 Delivery O2 Flow Rate FiO2 03/05/17 15:02 Room Air 03/05/17 13:37 36.5 71 18 112/61 98 03/04/17 04:50 2.00 03/03/17 05:15 100 Intake and Output 03/04/17 03/04/17 03/05/17 Cumulative From/Thru 15:00 23:00 07:00 03/01/17 17:31 - 03/05/17 05:57 Intake Total 815 ml 200 ml 01620 ml Output Total 200 ml 150 ml 2350 ml Balance 615 ml 50 ml 8606 ml Intake Oral 370 ml 200 ml 3280 ml IV Total 445 ml 6275 ml Packed Cells 651 ml FFP 750 ml Output Urine Total 200 ml 150 ml 2250 ml Estimated Blood Loss 100 ml # Voids 2 3 8 # Bowel Movements 0 0 Lab & Micro Results Laboratory Tests Test 03/05/17 05:35 White Blood Count 5.5th/mm3 (3.8-10.1) Red Blood Count 2.26mil/mm3 (3.90-5.20) Hemoglobin 7.3g/dL (12.0-15.6) Hematocrit 21.5% (35.0-46.0) Mean Corpuscular Volume 95.1fL (81-100) Mean Corpuscular Hemoglobin 32.3pg (27.0-35.0) Mean Corpuscular Hemoglobin Concent 34.0% (32.0-37.0) Red Cell Distribution Width 14.0% (12.3-15.4) Platelet Count 85bil/L (150-400) Neutrophils (%) (Auto) 77.4% (40-74) Lymphocytes (%) (Auto) 11.0% (14-46) Monocytes (%) (Auto) 6.9% (4-12) Eosinophils (%) (Auto) 4.3% (0-5) Basophils (%) (Auto) 0.2% (0-3) Prothrombin Time 21.4sec (8.1-12.5) Prothromb Time International Ratio 1.97ratio Sodium Level 134mEq/L (134-144) Potassium Level 3.8mEq/L (3.5-5.2) Chloride Level 101mEq/L (97-108) Carbon Dioxide Level 23mmol/L (18-29) Blood Urea Nitrogen 18mg/dL (8-27) Creatinine 0.70mg/dL (0.57-1.00) Estimat Glomerular Filtration Rate 115mL/min (>59) Glucose Level 96mg/dL (60-99) Calcium Level 7.7mg/dL (8.5-10.1) Total Bilirubin 0.6mg/dL (0.0-1.2) Aspartate Amino Transf (AST/SGOT) 16U/L (0-50) Alanine Aminotransferase (ALT/SGPT) 9U/L (0-32) Alkaline Phosphatase 59U/L (25-165) Total Protein 4.4g/dL (6.4-8.4) Albumin 2.7g/dL (3.4-5.0) Result Diagram: 03/05/17 0535 03/05/17 0535 Assessment & Plan Impression Patient is status post post day #3 left hip IM nail. Pain is stable, hemoglobin still low at 7.3 posttransfusion Problems: Plan Patient will continue physical therapy today with gait training with walker. Patient able to weight-bear as tolerated today. Dressing will remain clean dry and intact and changed as needed. Patient will resume her warfarin that she takes at home for DVT prophylaxis. We will utilize oral narcotics as needed for pain control. Patient does not have help at home, anticipate that she will require SNF as is our current recommendation. Patient is doing well, no signs of obvious bleeding. She will be ready for transfer once medically stable, including hemodynamically. Thank you to hospitalist team for continuing to manage the patient's other medical concerns. She will be transferred once approved by a hospitalist. Resuscitation Status: DNR/DNI:Do Not Resuscitate/Intubate Elias Shaw PA-C Mar 05, 2017 15:37
--- NOTE | 2017-03-05 16:30 | PCM.PNMED ---
Subjective Date of Service Mar 05, 2017 Subjective pain controlled and no new complaints,Hb responded suboptimally to transfusion .initially planned to discharge her to SNF but her choice [facility] is full and no bed available ,will discharge tomorrow Exam Vital Signs Vital Sign - Last Date Time Temp Pulse Resp B/P Pulse Ox O2 Delivery O2 Flow Rate FiO2 03/05/17 15:02 Room Air 03/05/17 13:37 36.5 71 18 112/61 98 03/04/17 04:50 2.00 03/03/17 05:15 100 Intake and Output 03/04/17 03/04/17 03/05/17 Cumulative From/Thru 15:00 23:00 07:00 03/01/17 17:31 - 03/05/17 05:57 Intake Total 815 ml 200 ml 27503 ml Output Total 200 ml 150 ml 2350 ml Balance 615 ml 50 ml 8606 ml Intake Oral 370 ml 200 ml 3280 ml IV Total 445 ml 6275 ml Packed Cells 651 ml FFP 750 ml Output Urine Total 200 ml 150 ml 2250 ml Estimated Blood Loss 100 ml # Voids 2 3 8 # Bowel Movements 0 0 Exam General: Alert, Oriented X3, Cooperative, No Acute Distress Head: Normal Eyes: Scleral Anicteric Nose: Mucous Membr Moist/[place] Neck: Supple Chest & Lungs: Chest Wall Normal, Clear to auscultation & percussion Cardiovascular: Regular Rate/Rhythm. Systolic murmur at LLSB Pulses: NL carotid, radial, femoral, DP, PT Abdomen: Non-tender, Non-distended, Normoactive bowel tones, Soft Extremities: No cyanosis/clubbing/edma bilat. Left hip surgical site cleanly dressed Neurological: Grossly Neurologically Intact, Normal Speech Additional Information: Psych: calm, appropriate IVs and Medications Medications Reviewed: Medications were reviewed in detail Lab and Diagnostics Result Diagram: 03/05/1753403/05/17534 X-Rays, CTs and MRIs PROCEDURE: X-RAY LEFT TIBIA/FIBULA, TWO VIEWS ([id number]) IMPRESSION: No fracture. No acute osseous lesion. If there are persistent symptoms or clinical suspicion for pathology, then repeat radiographs or advanced imaging (CT, MRI or bone scan) should be considered for further evaluation. PROCEDURE: X-RAY LEFT HIP COMPLETE, MINIMUM TWO VIEWS ([id number]) IMPRESSION: Intertrochanteric left femur fracture PROCEDURE: X-RAY LEFT FEMUR, TWO VIEWS ([id number]) IMPRESSION: No distal left femur fracture. PROCEDURE: X-RAY CHEST ONE VIEW, PORTABLE ([id number]) IMPRESSION: No acute cardiopulmonary disease process. Cardiac Echo Impressions nterpretation Summary Left ventricular wall thickness is normal. The ejection fraction is estimated to be 60-65%. The left atrium is severely dilated. The right atrium is mild to moderately dilated. There is mild mitral regurgitation. There is a prosthetic aortic valve. The aortic valve mean gradient is 16 mmHg. There is mild tricuspid regurgitation. The right ventricular systolic pressure is estimated at 30 mmHg assuming a right atrial pressure of 8 mm Hg. There is trace aortic regurgitation. Additional Diagnostics Date of Service: Mar 02, 2017 Pre Operative Diagnosis Left hip displaced intertrochanteric fracture Post Operative Diagnosis Same Procedure Left hip closed reduction cephalomedullary fixation Surgeon Surgeon:Zhen Long Assistants: Tanisha Colbert DO Indication for Procedure left hip fracture Findings left displaced intertrochanteric fx Details of Procedure Implant: NativeADuy Synthes 12 mm x 380 mm TFN 125 deg; 56mm distal interlock Assessment & Plan 81-year-old female that presented to the emergency department post ground-level fall with a left femur fracture and a history of osteoporosis, hypertension, A. fib on Coumadin # Acute left intertrochanteric femur fracture, present upon admission and ongoing - Patient presented with a history of osteoporosis and ground level fall resulting in left femur fracture demonstrated on x-ray - status post Left hip closed reduction cephalomedullary fixation 03/02 # Anemia requiring transfusion,acute,not poa -Significant hemoglobin drop noted. from 12.6 to 6.7. Transfused 2 units of PRBC 03/03.Hb 7.3 today -ok to resume warfarin per orthopedics.. -anemia periop no need for further workup for now # History of aortic stenosis s/p replacement - Echo as above # Chronic atrial fibrillation on Coumadin, present on admission. - Rate controlled. - Continue with home dose Dig. - Continue Coumadin - Received FFP prior to surgery # Coronary artery disease with triple bypass, present upon admission. Presumed stable. - Continue outpatient statin medication and blood pressure management - Most current echo results available at this time are from 2008 indicating tricuspid aortic valve stenosis, severe with mitral annular calcification and moderate mitral insufficiency, normal ejection fraction. - Patient should be scheduled for an echo if one has not been done within the last year # Chronic hypothyroidism, present on admission. Presumed stable. - Continue outpatient medication # History of hypertension, present upon admission - Currently under control. - Continue outpatient medication # Acute hypokalemia, present on admission. - Replete and followup Dispo: tomorrow to SNF /[facility] VTE Mechanical Devices: Intermittant Pneumatic CD Resuscitation Status: DNR/DNI:Do Not Resuscitate/Intubate David Phillips MD Mar 05, 2017 16:30
--- NOTE | 2017-03-05 17:22 | NUR ---
pain pt getting good pain control with 1 Percocet every 4 hours, orthos OK, changed dressing today because dressings were soiled and top dressing was starting to peel off.
[2017-03-05 20:25] VITALS: BP 110/68; PULSE 60; RESP 16; O2SAT 97
[2017-03-05 23:30] VITALS: BP 135/68; PULSE 66; RESP 17; O2SAT 93
[2017-03-06 04:28] VITALS: BP 120/68; PULSE 63; RESP 17; O2SAT 94
--- NOTE | 2017-03-06 04:34 | NUR ---
Activity Pt has been incontinent this shift, stating "I can't hold it due to this water pill" Pt encouraged to call us as soon as she can, however each time nurse or OPTICAL SCIENTIST quickly arrives to room, pt reports she is already going in brief. Brief has been changed 6x this shift, fausto care done. Pt very helpful with turns. Pt reports "hip feels great" and has declined pain meds so far. Orthos intact. SCDs are on.
[2017-03-06 05:19] LABS: BASOPHILS % (AUTO) 0.2 % (0-3); EOSINOPHILS % (AUTO) 4.1 % (0-5); MONOCYTES % (AUTO) 9.6 % (4-12); Mean Corpuscular Hemoglobin 32.3 pg (27.0-35.0); Mean Corpuscular Volume 95.6 fL (81-100); NEUTROPHILS % (AUTO) 74.1 % (40-74); Platelet Count 117 bil/L (150-400)
[2017-03-06 05:39] LABS: INR 2.04 ratio
--- NOTE | 2017-03-06 08:08 | NUR ---
CORRECTION TRANSFER : Faxed referral to [facility], [place] auth pending. Updated CAKE PRESS OPERATOR HELPER Addendum: 03/06/17 at 0813 by LORI CRABTREE CM Called and left message for Nani Juarez CM at [facility] and asked for review of patient for transfer to SNF today. Updated CAKE PRESS OPERATOR HELPER Addendum: 03/06/17 at 0935 by LORI CRABTREE CM [facility]
[2017-03-06] MEDS: oxyCODONE-Acetamin 5-325 mg Tablet PO PRN ×3 (08:09→16:04)
--- NOTE | 2017-03-06 08:22 | PCM.PNORTH ---
Subjective Date of Service: Mar 06, 2017 Visit Information: Reason for Visit Hip Fx Surgery/Surgery Date L HIP PINNING 03/02/17 Post-Op Day # 4 Date of Admission: Mar 01, 2017 at 19:55 Hospital Day # Subjective Patient had some nausea yesterday, relieved with Zofran. Postop General: No Shortness of Breath, No Chest Pain Pain Management: PO Objective Exam Objective Patient is seen sitting up in bed Vital Signs and I/O Vital Sign - Last Date Time Temp Pulse Resp B/P Pulse Ox O2 Delivery O2 Flow Rate FiO2 03/06/17 04:28 36.9 63 17 120/68 94 Room Air 03/04/17 04:50 2.00 03/03/17 05:15 100 Intake and Output 03/05/17 03/05/17 03/06/17 Cumulative From/Thru 15:00 23:00 07:00 03/01/17 17:31 - 03/06/17 04:28 Intake Total 1020 ml 200 ml 23622 ml Output Total 200 ml 2550 ml Balance 820 ml 200 ml 9626 ml Intake Oral 1020 ml 200 ml 4500 ml IV Total 6275 ml Packed Cells 651 ml FFP 750 ml Output Urine Total 200 ml 2450 ml Estimated Blood Loss 100 ml # Voids 6 6 20 # Bowel Movements 0 0 Lab & Micro Results Laboratory Tests Test 03/06/17 05:00 White Blood Count 5.1th/mm3 (3.8-10.1) Red Blood Count 2.29mil/mm3 (3.90-5.20) Hemoglobin 7.4g/dL (12.0-15.6) Hematocrit 21.9% (35.0-46.0) Mean Corpuscular Volume 95.6fL (81-100) Mean Corpuscular Hemoglobin 32.3pg (27.0-35.0) Mean Corpuscular Hemoglobin Concent 33.8% (32.0-37.0) Red Cell Distribution Width 13.8% (12.3-15.4) Platelet Count 117bil/L (150-400) Neutrophils (%) (Auto) 74.1% (40-74) Lymphocytes (%) (Auto) 11.8% (14-46) Monocytes (%) (Auto) 9.6% (4-12) Eosinophils (%) (Auto) 4.1% (0-5) Basophils (%) (Auto) 0.2% (0-3) Prothrombin Time 22.2sec (8.1-12.5) Prothromb Time International Ratio 2.04ratio Sodium Level 135mEq/L (134-144) Potassium Level 3.9mEq/L (3.5-5.2) Chloride Level 96mEq/L (97-108) Carbon Dioxide Level 26mmol/L (18-29) Blood Urea Nitrogen 15mg/dL (8-27) Creatinine 0.65mg/dL (0.57-1.00) Estimat Glomerular Filtration Rate 126mL/min (>59) Glucose Level 98mg/dL (60-99) Calcium Level 7.9mg/dL (8.5-10.1) Total Bilirubin 0.7mg/dL (0.0-1.2) Aspartate Amino Transf (AST/SGOT) 17U/L (0-50) Alanine Aminotransferase (ALT/SGPT) 10U/L (0-32) Alkaline Phosphatase 69U/L (25-165) Total Protein 4.7g/dL (6.4-8.4) Albumin 2.8g/dL (3.4-5.0) Result Diagram: 03/06/17 0500 03/06/17 0500 General Appearance: Alert, Oriented X3, Cooperative, No Acute Distress, Other ( very hard of hearing) Extremities: Distal Pulses Palpable, No Compartment Syndrom Noted, Thigh & Calf Soft/Nontender Postop Sensory Motor: Distal Motor Intact, Distal Sensation Intact, NVI Distally SURGICAL WOUND : Wound Location/Description Left hip: The most proximal dressing is saturated with serous drainage. There is minimal serous drainage at the middle and distal wounds. No erythema seen Catheters: None Assessment & Plan Impression POD #4 status post left hip IM nailing Problems: Plan Patient will continue physical therapy today with gait training with walker. Patient able to weight-bear as tolerated today. Dressing: Nursing will change dressing today when patient is up, then change every 1-2 days as needed. The most proximal wound will tend to drain the most. DVT prophylaxis: resume her warfarin that she takes at home . Discharge plan: SNF when approved and medically stable per hospitalist. Patient is stable from ortho perspective. Follow up in 2 weeks at [facility] with Dr. Long for wound check, and at [address] Long, with xrays Pain Management: Percocet VTE Prophylaxis: Theraputic Anticoag with Warfarin, SCDs, JOSEPH Dunlap Resuscitation Status: DNR/DNI:Do Not Resuscitate/Intubate Luciana Self PA-C Mar 06, 2017 08:22
[2017-03-06] MEDS: Senna-Docusate 8.6-50 mg Tablet PO SCH (08:24)
[2017-03-06] MEDS: Pantoprazole 20 mg ER24 Tablet PO SCH (08:25)
[2017-03-06 08:45] VITALS: BP 115/65; PULSE 69; RESP 16; O2SAT 93
--- NOTE | 2017-03-06 10:30 | NUR ---
LONG-TERM TRANSFER : Spoke with Rukhsana at [facility] and she can accept patient, she is arranging transport for 1230PM. Faxed orders to [facility] [phone] and placed copy in the chart. Updated UNIT ASSISTANT and RN
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
[2017-03-06 13:55] VITALS: BP 112/55; PULSE 72; RESP 17; O2SAT 94
--- NOTE | 2017-03-06 15:08 | NUR ---
PENITENTIARY UPDATE: Spoke with Amberly and there is a bed at [facility] this is the patient preference and this is where patient will be going. Faxed orders to [facility] [phone]. They are picking patient up via wheelchair van at 1630. Updated PEST CONTROL SUPERVISOR and RN
--- NOTE | 2017-03-06 16:25 | NUR ---
Social Work: Discharge/Multidisciplinary Rounds D: EMR reviewed. Pt is on day 5 of hospitalization. Pt discussed in multidisciplinary rounds and is medically stable for discharge to SNF today. Rn Otolaryngology was able to get pt in at [facility], pt's preferred choice, instead of [facility]. Rn Otolaryngology updated [facility] on pt's choice to go to [facility]. Rn Otolaryngology completed transfer packet and coordinated transport via wheelchair van for 1630 today. Pt and RN updated on discharge plan and transfer time, all agreeable. No other discharge needs identified. A: Pt for whom a SNF is medically necessary P: Pt to discharge to [facility] with Dr. Dawson to follow at 1630 today. Utliziation Specialist completed transfer packet and faxed ppw. Transfer packet left at RN station. Pt/RN/UA notified. All updated and agreeable to plan. No other SW needs identified at this time, no other MD orders received. VEE Mahmood Addendum: 03/06/17 at 1629 by SULTANA GONZALES Rn Otolaryngology received [place] authorization and confirmed pt will be going to [facility]. VEE Mahmood
--- NOTE | 2017-03-06 16:40 | NUR ---
discharged to [facility], report called to SNF, pt transported per cabulance, alert and oriented, VSS, good pain control, received Percocet prior to discharge, dressing changed again this am, proximal incision oozing moderate amt sero-sanguinous drainage
== END 2017-03-06 16:56 | DRG 481 ==
LOC: EDUNIT# 17:00 → EDBD 17:00 → SED 17:00 → OSC 19:55
PROVIDERS: ADMIT Hospitalist; ATTEND Internal Medicine
PROC: 30233L1 Transfusion of Nonautologous Fresh Plasma into Peripheral Vein, Percutaneous Approach (ICD-10-PCS; 2017-03-02)
PROC: 0QS736Z Reposition Left Upper Femur with Intramedullary Internal Fixation Device, Percutaneous Approach (ICD-10-PCS; principal; 2017-03-02 13:00)
PROC: 30233N1 Transfusion of Nonautologous Red Blood Cells into Peripheral Vein, Percutaneous Approach (ICD-10-PCS; 2017-03-03)
DX: S72.142A Displaced intertrochanteric fracture of left femur, initial encounter for closed fracture (principal); R71.0 Precipitous drop in hematocrit; R29.6 Repeated falls; I25.10 Atherosclerotic heart disease of native coronary artery without angina pectoris; I10 Essential (primary) hypertension; E03.9 Hypothyroidism, unspecified; Z66 Do not resuscitate; I48.2 Chronic atrial fibrillation; E87.6 Hypokalemia; W01.0XXA Fall on same level from slipping, tripping and stumbling without subsequent striking against object, initial encounter; Z88.0 Allergy status to penicillin; Z95.1 Presence of aortocoronary bypass graft; Y92.009 Unspecified place in unspecified non-institutional (private) residence as the place of occurrence of the external cause; Z79.01 Long term (current) use of anticoagulants